=== PATIENT | male | born 1960 | race Caucasian/White ===

== ENCOUNTER → 2024-02-13 | Outpatient (CLI) | payer SELFPAY ==
[2024-02-13 11:56] LABS: Absolute Lymphocyte Count 2.32 X10^3/uL (0.83-4.51); Absolute Neutrophil Count 3.5 X10^3/uL (2.0-7.7); Basophil# 0.03 X10^3/uL; Basophil% 0.4 % (0-1); Eosinophil# 0.23 X10^3/uL; Eosinophils% 3.4 % (0-5); Hematocrit 42.6 % (40-54); Hemoglobin 14.3 g/dL (13.0-16.5); Lymphocyte # 2.32 X10^3/ul (0.83-4.51); Lymphocyte % 34.4 % (19-41); Mean Corp Hgb Conc 33.6 g/dL (32-36); Mean Corpuscular Hgb 29.7 pg (27.0-32.0); Mean Corpuscular Volume 88.6 fL (80-94); Mean Platelet Vol. 9.8 fl (6.2-12.0); Monocyte# 0.69 X10^3/uL; Monocyte% 10.2 % (0-10); NRBC Flagged by Analyzer 0 % (0-5); Neutrophil # 3.45 X10^3/uL (2.7-7.7); Neutrophil % 51.3 % (47-70); Platelet Count 286 K/mm3 (150-450); RBC Distribution Width CV 12.8 % (11.6-14.6); RBC Distribution Width SD 41.7 fl (35.1-43.9); Red Blood Count 4.81 M/mm3 (4.6-6.2); White Blood Count 6.7 K/mm3 (4.4-11.0)
[2024-02-13 12:02] LABS: International Normalized Ratio 0.9; Prothrombin Time (Protime)PT. 12.4 SECONDS (11.7-14.9)
[2024-02-13 12:40] LABS: Anion Gap 5 (5-15); BUN 15 mg/dL (7-18); Chloride 109 mmol/L (98-107); Creatinine, Serum 0.83 mg/dL (0.70-1.30); EST Glomerular Filtration Rate 99 mL/min (>60); Est Glom Filt Rate - Afr Amer 120 mL/min (>60); Glucose 122 mg/dL (74-106); Potassium 4.5 mmol/L (3.5-5.1); Sodium Level 140 mmol/L (136-145)
== END | disposition home or self-care (01) ==
PROVIDERS: PCP Family Medicine; Referring Provider Internal Medicine Cardiovascular Disease; Visit Provider Internal Medicine Cardiovascular Disease
DX: I20.0 Unstable angina (principal)
CPT/HCPCS: 36415; 71046; 80048; 85025; 85610

== ENCOUNTER → 2024-02-29 | Outpatient (CLI) | payer SELFPAY ==
--- NOTE | 2024-02-29 09:46 | ECHOD_ITS ---
Version 2 Reason For Study: CHEST PAIN Procedure This was a 2D Doppler, Color Flow transthoracic echocardiogram. Exam performed in department. Left Ventricle Normal LV size. The estimated ejection fraction is 70 %. Unable to assess diastolic dysfunction. No regional wall motion abnormalities noted. Right Ventricle Normal RV size. Normal systolic function. Atria The left and right atria are normal. No doppler evidence for ASD. Mitral Valve There is moderate mitral annular calcification. There is no mitral valve stenosis. No mitral valve insufficiency. Tricuspid Valve There is no tricuspid stenosis. Trivial tricuspid valve insufficiency. Unable to estimate RV systolic pressure due to insufficient tricuspid regurgitant envelope. Aortic Valve Mild diffuse aortic valve thickening. Mild aortic stenosis. No aortic valve insufficiency. Pulmonic Valve There is no pulmonic valvular stenosis. No pulmonic valve insufficiency. Great Vessels Normal aortic root. Pericardium/Pleural No pericardial effusion. MMode/2D Measurements & Calculations LVIDd: 4.1 cm IVSd: 1.3 cm LVOT diam: 2.0 cm LVIDs: 2.5 cm LVPWd: 1.3 cm LVOT area: 3.1 cm2 RVDd: 3.8 cm FS: 39.7 % Ao root diam: 3.3 cm LAV(MOD-bp): 50.1 ml LVAd ap4: 38.8 cm2 LAV(MOD-bp) Indexed: 23.1 ml/m2 LVLd ap4: 9.2 cm LAV(MOD-sp2): 51.4 ml EDV(MOD-sp4): 133.8 ml LAV(MOD-sp4): 49.1 ml EDV(sp4-el): 138.5 ml LVAs ap4: 21.1 cm2 LVLs ap4: 7.7 cm ESV(MOD-sp4): 51.5 ml ESV(sp4-el): 49.2 ml EF(MOD-sp4): 61.5 % EF(sp4-el): 64.5 % SV(MOD-sp4): 82.3 ml SV(sp4-el): 89.4 ml LA A4 area: 18.0 cm2 SI(MOD-sp4): 37.9 ml/m2 LA dimension(2D): 3.7 cm RA A4 area: 16.9 cm2 TAPSE: 2.4 cm Time Measurements MV dec time: 0.21 sec Doppler Measurements & Calculations MV E max chris: 85.6 cm/sec Lat Peak E' Chris: 10.8 cm/sec Med Peak E' Chris: 10.4 cm/sec MV A max chris: 97.3 cm/sec E/E' lat: 7.9 E/E' med: 8.2 MV E/A: 0.88 Ao V2 max: 234.3 cm/sec LV V1 max: 166.0 cm/sec SV(LVOT): 115.1 ml Ao max P.0 mmHg LV V1 max P.0 mmHg Ao V2 mean: 168.3 cm/sec LV V1 mean P.5 mmHg Ao mean P.8 mmHg LV V1 mean: 115.5 cm/sec Ao V2 VTI: 44.4 cm LV V1 VTI: 37.6 cm AV (velocity ratio): 0.85 NATALI(I,D): 2.6 cm2 NATALI(V,D): 2.2 cm2 ECHO/Echo Complete Interpretation Summary The estimated ejection fraction is 70 %. Unable to assess diastolic dysfunction. Mild aortic stenosis. Ordering Physician: Juancarlos Marquez Referring Physician: DIEUDONNE PÉREZ Performed By: Elodia Moses, LUC
== END | disposition home or self-care (01) ==
LOC: CVS 09:44
PROVIDERS: PCP Family Medicine; Referring Provider Internal Medicine Cardiovascular Disease; Visit Provider Internal Medicine Cardiovascular Disease
DX: I20.0 Unstable angina (principal); R01.1 Cardiac murmur, unspecified
CPT/HCPCS: 93306

== ENCOUNTER 2024-03-05 08:48 | Observation (INO) | payer SELFPAY ==
[2024-03-02 09:31] VITALS: BMI 34.9
[2024-03-05] VITALS (11 sets, daily range): BP systolic 133–164; BP diastolic 63–103; PULSE 67–75; RESP 16; TEMP 36.4–36.8; O2SAT 92–97; BMI 35.6
--- NOTE | 2024-03-05 08:21 | CL.D_ITS ---
Patient Name: BRITTON BECKER Study Date: 03/05/2024 Performing: Óscar Castanon MD Ht: 68 inches 172.72 cm : 1960 Wt: 230.01 lbs 104.33 kg Age: 63 Gender: male BSA: 2.17 PROCEDURE(S) PERFORMED DC01-(58005)LHC/COR/LV CLINICAL PROFILE AND INDICATIONS Indications: New Onset Angina <= 2 months Heart Failure: None Stress/Imaging Stress/Image Study Performed: No CAD Presentations: Unstable angina. CONCLUSIONS Severe single-vessel coronary artery disease involving the proximal to mid left anterior descending artery mildly calcified. Preserved left ventricular systolic function. RECOMMENDATIONS Referred for immediate PCI DESCRIPTION OF PROCEDURE The patient arrived to the procedure lab. The risks and benefits of the procedure as well as a full description of our services here and current unavailability of surgical backup were fully explained to the patient and/or their significant other prior to the catheterization. The Timeout was completed, verifying the correct patient and procedure. The patient's procedural site was prepped and draped in the usual fashion. Local anesthetic was given subcutaneously to right radial region with Lidocaine 2%. Using a modified Seldinger technique, arterial access was obtained via the right radial artery, a 6Fr sheath was inserted. Left Coronary Artery selective angiography was performed in multiple views using a 5 Fr. 4.0 [place] catheter. Right Coronary Artery selective angiography was then performed in multiple views using a 5 Fr. 4.0 [place] catheter. Left Ventriculography was performed in [place] projection using a 5 Fr. Pigtail catheter. LV to AO pullback pressures were then recorded. CORONARY ANGIOGRAPHY DOMINANCE: Co- Dominant LEFT HEART ASSESSMENT Left Ventricular Ejection Fraction: by LV Gram 65 % Normal LV wall motion Normal Left Ventricular systolic function LEFT MAIN: Angiographically normal LEFT ANTERIOR DESCENDING ARTERY: Mild calcification, Proximal long 95% stenotic lesion and mid focal 50% stenosis and distal mild tortuosity present. CIRCUMFLEX ARTERY: Mild luminal irregularities less than 30% RIGHT CORONARY ARTERY: Mild luminal irregularities less than 30% COMPLICATIONS No Complications PROCEDURE MEDICATIONS Versed 1 mg IV Fentanyl 50 mcg IV Baby Aspirin (81mg) 1 Tabs PO @ 03/05/2024 07:22:05 SUMMARY OF HEMODYNAMIC DATA Time AIR REST ECG 07:17:04 AO 155/58 (107) SA 08:05:19 LV 149/21, 38 08:10:03 LV 136/17, 25 08:10:12 LV 147/18, 22 08:11:24 LV 146/18, 22 08:11:26 LVp 150/16, 24 08:11:32 AOp 154/79 (109) 08:11:39 Signed By Óscar Castanon MD On 03/05/2024 08:23:19 Signed By Óscar Castanon MD On 03/05/2024 08:20:13 Óscar Castanon MD
--- NOTE | 2024-03-05 09:00 | EKG12_ITS ---
Test Reason : AM EKG Blood Pressure : */* mmHG Vent. Rate : 65 BPM Atrial Rate : 65 BPM P-R Int : 144 ms QRS Dur : 94 ms QT Int : 376 ms P-R-T Axes : -1 35 16 degrees QTcB Int : 391 ms Normal sinus rhythm Nonspecific T wave abnormality Abnormal ECG When compared with ECG of 05-Mar-2024 11:50, MANUAL COMPARISON REQUIRED DATA IS UNCONFIRMED Confirmed by CATE FLOOD, ÓSCAR ([id number]), content editor GOLDEN HARRISON ([id number]) on 03/06/2024 8:21:25 AM Referred By: Óscar Castanon Confirmed By: ÓSCAR CASTANON MD
--- NOTE | 2024-03-05 09:04 | CL.I_ITS ---
Patient Name: BRITTON BECKER Study Date: 03/05/2024 Performing: Zheng Lewis MD Ht: 68 inches 172.72 cm : 1960 Wt: 230.3 lbs 104.33 kg Age: 63 Gender: male BSA: 2.17 PROCEDURE(S) PERFORMED IC12-(46017/C9600)[place] W/WO PTCA, SINGLE CORONARY ARTERY CLINICAL PROFILE AND CO-MORBIDITIES Indications: New Onset Angina <= 2 months Heart Failure: None Stress/Imaging Stress/Image Study Performed: No CAD Presentations: Unstable angina. CONCLUSIONS Successful [place] Prox LAD using Brittany [place] 3.5x30 mm, optimized proximally using 4.0 mm balloon RECOMMENDATIONS ASA Indefinitley P2Y12 inhibitors for atleast 6 months DESCRIPTION OF PROCEDURE The patient arrived to the procedure lab. The risks and benefits of the procedure as well as a full description of our services here and current unavailability of surgical backup were fully explained to the patient and/or their significant other prior to the catheterization. The Timeout was completed, verifying the correct patient and procedure. The patient's procedural site was prepped and draped in the usual fashion. Local anesthetic was given subcutaneously to right radial region with Lidocaine 2% Using a modified Seldinger technique,arterial access was obtained via the right radial artery, a 6Fr sheath was inserted. Left Coronary Artery selective angiography was performed in multiple views using a 5 Fr. 4.0 [place] catheter. Right Coronary Artery selective angiography was then performed in multiple views using a 5 Fr. 4.0 [place] catheter. Left Ventriculography was performed in [place] projection using a 5 Fr. Pigtail catheter. LV to AO pullback pressures were then recorded.The images were reviewed and options discussed. A decision was then made to proceed with an Intervention, IVUS or other adjunct procedure. xb3 Guide catheter was inserted and engaged into the LCA. runthrough Guide wire was advanced to the LAD. brittany 3.5 x 30 Drug Eluting stent was advanced across the lesion in the LAD, proximal. Angiogram performed pre stent deployment. Angiogram performed post stent deployment. nc emerge 3.5 x 20 Balloon catheter was inserted post stent. Angiogram performed post balloon dilatation. nc euphora 4.0 x 6 Balloon catheter was inserted post stent. Angiogram performed post balloon dilatation. The arterial sheath was pulled and a TR Band was applied for hemostasis INTERVENTION INFORMATION LESION SITE: LAD (Proximal) lesion length: 28 mm, Lesion Complexity: High/C Pre Stenosis: 95 % Pre intervention COOKIE flow: 3 PROCEDURE: Drug Eluting Stent with post dilatation Post Stenosis: 0 % Post intervention COOKIE flow: 3 Lesion Devices: Terumo .014 180cm Runthrough Extra Floppy straight Cordis 6 Fr XB3.0 100cm Guide Catheter Medtronic 3.5 x 30 BRITTANY FRONTIER [place] [employer] [place] EMERGE MR 3.50x20 BALLOON Medtronic [place] EUPHORA RX 4.0x06 BALLOON COMPLICATIONS No Complications PROCEDURE MEDICATIONS Versed 1 mg IV Fentanyl 50 mcg IV Baby Aspirin (81mg) 1 Tabs PO @ 03/05/2024 07:22:05 Heparin given IA 03/05/2024 08:02:33 Heparin 8000 unit(s) IV 03/05/2024 08:21:40 Heparin 2000 unit(s) IV 03/05/2024 08:31:19 Heparin 3000 unit(s) IV 03/05/2024 08:51:06 Nitro 200 mcg IC 03/05/2024 08:31:13 Verapamil 2.5mg, Ntg 200mcgs, 2000 units of Heparin given IA 03/05/2024 08:02:33 SUMMARY OF HEMODYNAMIC DATA Time AIR REST ECG 07:17:04 AO 155/58 (107) SA 08:05:19 LV 149/21, 38 08:10:03 LV 136/17, 25 08:10:12 LV 147/18, 22 08:11:24 LV 146/18, 22 08:11:26 LVp 150/16, 24 08:11:32 AOp 154/79 (109) 08:11:39 AIR REST 08:55:07 Signed By Zheng Lewis MD On 03/05/2024 09:03:41 Zheng Lewis MD
[2024-03-05] MEDS: 0.9% Normal Saline (1000mL) 1,000 ML 150 ML IV (09:30)
[2024-03-05] MEDS: Losartan Potassium 50 MG Tablet PO (10:44)
[2024-03-05] MEDS: amLODIPine 5 MG Tablet PO ×2 (10:44→12:02)
[2024-03-05 14:55] LABS: ACT Activated Clotting Time 239 sec (74-137)
[2024-03-05] MEDS: Clopidogrel Bisulfate 300 MG Tablet PO (15:15)
--- NOTE | 2024-03-05 15:20 | CRPHASE1_ITS ---
Patient Communication Patient Information Former Patient:: Phase I PHII Cardiac Rehab Discussed with Patient:: Yes Guide to Cardiac Rehab Given to Patient:: Yes Cardiac Rehab Facility Choice List Given to Patient:: Yes Communication to Cardiac Rehab Choice Program [facility] CR PHII:: Communication Given to CR Operations And Maintenance Manager:: Zheng Lewis Phase II Cardiac Rehab:: Yes Sessions:: 36 sessions - 3 days/wk, 12 weeks Medical/Surgical History Medical History [place]:: No Angina:: Yes CAD:: Yes Congestive Heart Failure: Cardiomyopathy:: No Valve Disease/Replacement:: No Pulmonary:: No COPD:: No Asthma:: No JUAN:: No Diabetes:: No Diabetes Type I:: No Diabetes Type II:: No Hypertension:: Yes Dyslipidemia:: No Arrhythmias:: No EPS:: No CVA/TIA: PE:: No DVT:: No PVD:: No PAD:: No GI:: No GERD:: No Cancer:: No Renal:: No Thyroid:: No Depression:: No Anxiety:: No Surgical History CABG: No PTCA:: Yes ICD:: No Pacemaker:: No Orthopedic:: No Cardiac Rehabilitation Info Program Information Cardiac Rehabilitation Program Information: Cardiac Rehab The cardiac rehab team at [facility] consists of highly skilled exercise physiologists, nurses, respiratory therapists and physicians working together with you. Our purpose is to help you have a full recovery and achieve the goals you set for yourself. Over the years many of our patients have returned to activities they assumed they would never do again! We can help restore your confidence and motivation to make lifestyle changes that can have a significant impact on your health and quality of life! We can help answer questions and concerns you may have about exercise, lifestyle, medications, diet, stress and anxiety which are common following a hospitalization. WE monitor ECG and vital signs during exercise and discuss your progress with you and report to your physician(s). Cardiac Rehab is proven to help reduce readmissions, improve functional capacity and lower recurrence of problems with your heart. Our Cardiac Rehab program is Certified by the [place] [employer]-Vascular and Pulmonary [employer] (AACVPR) and Accredited by the [place] [employer] through our [facility]. You can contact us at . We invite you to call us with your questions or to get started in our program. If you have other questions or concerns be sure to ask your physician/provider during your follow-up visit. WE look forward to seeing you!
--- NOTE | 2024-03-05 15:21 | CRPH1.INSTRU ---
General Education Discussed with Patient CAD and cardiac anatomy and function:: Patient communicates acknowledgment Explanation of diagnoses and procedures:: Patient communicates acknowledgment Sign/Symptoms of MA:: Patient communicates acknowledgment Antiplatelet therapy: Patient communicates acknowledgment Proper use of NTG-SL: Patient communicates acknowledgment Emergency procedures and activation of EMS: Patient communicates acknowledgment Compliance of all prescribed medications: Patient communicates acknowledgment Smoking Risk Factors Patient Nicotine/Smoking Risk Factors Are:: Never smoked Dyslipidemia Recommendations Recommendations Include:: Lipid profile not available Overweight/Obesity Risk Factors Patient Overweight/Obesity Risk Factors Are:: Overweight = 26-29 Recommendations Recommendations Include:: Reduced calorie diet and Exercise 5-7 times/week Response Code Overweight/Obesity:: Patient communicates acknowledgment Hypertension Recommendations Recommendations Include:: Maintain BP <130/85 and Decrease/maintain normal body weight Response Code Hypertension:: Patient communicates acknowledgment Heart Disease Risk Factors Patient Heart Disease Risk Factors Are:: Previous cardiac event Recommendations Recommendations Include:: Educated family members of their risk Response Code Heart Disease Response Code:: Patient communicates acknowledgment Diabetes Risk Factors Patient Diabetes Risk Factors Are:: No documented hx of diabetes Metabolic Syndrome Risk Factors Patient Metabolic Syndrome Risk Factors Are [3 of 5]:: Hypertension Response Code Metabolic Syndrome Response Code:: Patient communicates acknowledgment Sedentary Recommendations Recommendations Include:: Benefits of regular exercise Response Code Sedentary Response Code:: Patient communicates acknowledgment Stress Risk Factors Patient Stress Risk Factors Are:: Patient denies stress as a risk factor Recommendations Recommendations Include:: Identification of stressors, and assessment of coping skills Response Code Stress Response Code:: Patient communicates acknowledgment
[2024-03-05] MEDS: Carvedilol 3.125 MG TABLET PO (16:44)
[2024-03-05] MEDS: Atorvastatin Calcium 40 MG Tablet PO (20:25)
[2024-03-06 02:15] VITALS: BP 129/59; PULSE 69; RESP 17; TEMP 36.6; O2SAT 94
[2024-03-06 07:15] LABS: Hematocrit 41.9 % (40-54); Hemoglobin 13.7 g/dL (13.0-16.5); Mean Corp Hgb Conc 32.7 g/dL (32-36); Mean Corpuscular Hgb 28.8 pg (27.0-32.0); Mean Corpuscular Volume 88.2 fL (80-94); Mean Platelet Vol. 9.3 fl (6.2-12.0); Platelet Count 273 K/mm3 (150-450); RBC Distribution Width CV 12.7 % (11.6-14.6); RBC Distribution Width SD 41.1 fl (35.1-43.9); Red Blood Count 4.75 M/mm3 (4.6-6.2); White Blood Count 7.9 K/mm3 (4.4-11.0)
[2024-03-06 07:33] LABS: ACT Activated Clotting Time 262 sec (74-137)
[2024-03-06 07:43] VITALS: O2SAT 96
--- NOTE | 2024-03-06 07:45 | PCM.PN.CARD ---
Subjective Subjective Patient seen and evaluated. Appears to doing well. No complaints. Objective Data Vital Signs: Vital Signs Temp Pulse Resp BP Pulse Ox O2 Del Method 97.9 F 69 17 129/59 H 96 Room Air 03/06/24 02:15 03/06/24 02:15 03/06/24 02:15 03/06/24 02:15 03/06/24 07:43 03/06/24 07:43 Oxygen Delivery Method Room Air Weight: 234 lb 2.095 oz Body Mass Index (BMI) 35.6 Intake & Output: Intake and Output for Last 24 Hours 03/04/24 03/05/24 03/06/24 23:59 23:59 23:59 Intake Total 1000 / 1000 Output Total 500 / 500 Balance 500 / 500 Lab / Micro Data 03/06/24 06:41 03/06/24 06:41 Labs: Laboratory Results - last 24 hr 03/05/24 08:26: Activated Clotting Time 262 H 03/05/24 08:48: Activated Clotting Time 239 H 03/06/24 06:41: WBC 7.9, RBC 4.75, Hgb 13.7, Hct 41.9, MCV 88.2, MCH 28.8, MCHC 32.7, RDW Std Deviation 41.1, RDW Coeff of David 12.7, Plt Count 273, MPV 9.3 Cardiology Labs/Tests 03/06/24 06:41: WBC 7.9, RBC 4.75, Hgb 13.7, Hct 41.9, MCV 88.2, MCH 28.8, MCHC 32.7, Plt Count 273, MPV 9.3 Rhythm: EKG: ECHO: Stress Test: Cardiac Cath: PCI: CT Surgery: Holter monitor: EPS: PPM: CXR: Chest CT Scan: Physical Exam Const alert, oriented x3 and no apparent distress General Appearance: cooperative HEENT hearing grossly normal bilaterally Head and Scalp: atraumatic Eyes EOMs intact bilaterally Neck General: normal visual inspection Chest inspection of chest normal and palpation of chest normal Resp normal respiratory effort Auscultation: clear to auscultation bilaterally Cardio regular rate, regular rhythm, S1 normal heart sound and S2 normal heart sound Jugular Venous Distention: JVD GI normal to inspection, nondistended, normoactive bowel sounds Extremity normal capillary refill and no pedal edema Peripheral Pulses: Yes pulses 2+ throughout and femoral pulses present Skin no rashes or lesions noted Neuro oriented x3 and CN's II-XII intact bilaterally Psych Appearance: grossly normal and appropriate Assessment & Plan Assessment/Plan (1) Stented coronary artery: PLAN: Patient underwent angioplasty and stenting of the left anterior descending artery and is doing well at this time the plan is to continue current medical therapy including P2 Y12 inhibitor and discharged for outpatient follow-up. Patient will consider cardiac rehabilitation. Follow-up in the heart group offices (2) Hypertension: QUALIFIERS: Hypertension type: primary hypertension Qualified Code(s): I10 - Essential (primary) hypertension PLAN: Blood pressure is under good control at this particular time I would not make any major changes.
--- NOTE | 2024-03-06 07:51 | DCINST_ITS ---
Discharge Instructions Diet Discharge Diet: No restrictions (You may continue your normal diet.) DC O2, CPAP, BIPAP needs Additional Home O2 Discharge instructions: No Dressing / Incision Discharge Activity: Return to Normal Activity Lifting Restrictions: 10 pounds and also avoid any pushing or pulling for 3 days after your test. Additional Activity Instructions:: You must have someone drive you home. Do not drive until instructed by your doctor. You must have someone stay with you all night after your test. Rest in bed or on the couch until the next morning. Limit the number of times you go up and down stairs the day of your test. Apply pressure to the puncture site if you sneeze or cough. Dressing / Incision Call your doctor if your incision/area has: Increased Pain/ Swelling, Increased Redness, Foul Smelling Discharge and Swelling at the incision site Call your doctor if you observe: Fever of 101 or Higher Additional Dressing/Incision Instructions:: Keep the dressing (bandage) on until the next morning. You may then shower, but do not take a tub bath for 5 days after your test. It is normal to have some tenderness and discomfort at the puncture site. Sometimes bruising also occurs. However, if pain, numbness, or coldness occurs below the puncture site (in your leg, toes, arms or fingers) call your doctor at once. You may have a small, marble sized knot at the puncture site. This is normal. Do not rub it. It will go away in 4-6 weeks. Bleeding can occur from the area where the puncture was done. Blood may spurt or drip from the site. If blood spurts, apply pressure right away to stop bleeding and call 911. Although rare, bleeding into the tissue (hematoma) can also occur. If this happens, a large, firm area goose egg under the skin will appear. If any of these occur, lie down as flat as you can and have someone apply firm pressure to the cath site with a gauze pad or a clean washcloth for 10-15 minutes. Call 911 or go to the Emergency Department. Follow Up Care Test Results: Test results from this visit will be discussed in further detail at your follow- up appointment, if applicable. Discharge Plan Admission Admit Date/Time: 03/05/24 08:48 Attending Provider: Óscar Castanon Primary Care Provider: Alessandro Mendoza Discharge Orders/Prescriptions Prescriptions: New clopidogrel 75 mg Tablet 75 mg PO DAILY Qty: 90 3RF Continued telmisartan 40 mg tablet 40 mg PO QDAY amlodipine 5 mg tablet 5 mg PO QDAY atorvastatin 40 mg tablet 40 mg PO QDAY aspirin 81 mg capsule 81 mg PO DAILY Referrals / Follow Up: Alessandro Mendoza DO [Primary Care Provider] - Disposition Disposition (needs filled in before D/C Order can be placed): Home, Self Care
[2024-03-06 07:52] LABS: ALB/GLOB Ratio 1.5 RATIO (0.9-2.4); AST(SGOT) 20 U/L (15-37); Alanine Aminotransfer ALT/SGPT 43 U/L (16-61); Albumin, Serum 3.9 g/dL (3.2-5.0); Alkaline Phosphatase 66 U/L (45-117); Anion Gap 4 (5-15); BUN 15 mg/dL (7-18); BUN/Creat Ratio 19.1 RATIO (10-20); Chloride 110 mmol/L (98-107); Creatinine, Serum 0.78 mg/dL (0.70-1.30); EST Glomerular Filtration Rate 106 mL/min (>60); Est Glom Filt Rate - Afr Amer 129 mL/min (>60); Globulin 2.6 g/dL (2.2-4.2); Glucose 110 mg/dL (74-106); Potassium 4.2 mmol/L (3.5-5.1); Protein, Total 6.5 g/dL (6.4-8.2); Sodium Level 140 mmol/L (136-145)
[2024-03-06] MEDS: Aspirin 81 MG TAB.CHEW PO (07:56)
[2024-03-06] MEDS: Carvedilol 3.125 MG TABLET PO (07:56)
--- NOTE | 2024-03-06 10:14 | CASEMGMT ---
Patient has order for discharge. RN CM in to discuss needs at discharge. Patient denies needs or help at discharge. Patient had no further questions or concerns.
--- NOTE | 2024-03-06 10:15 | PHA.DC.MC.R ---
Pharmacy [facility] has performed discharge medication reconciliation and counseling for this patient. The patient's discharge medication list was reviewed for discrepancies and discrepancies were resolved. The patient was counseled on the following discharge medications and changes in medications for homegoing were reviewed. The Reason for Use, instructions for use, and potential side effects were reviewed for all new medications. The patient's questions regarding all of their medications were answered. 1. Clopidogrel 75 mg PO daily. The patient was able to verbally demonstrate an understanding of their discharge medications. Medications at Discharge Home Medications amlodipine 5 mg tablet 5 mg PO QDAY 01/16/24 atorvastatin 40 mg tablet 40 mg PO QDAY 01/16/24 telmisartan 40 mg tablet 40 mg PO QDAY 01/16/24 aspirin 81 mg capsule 81 mg PO DAILY 03/02/24 clopidogrel 75 mg tablet 75 mg PO DAILY #90 tabs 03/06/24
[2024-03-06 10:56] VITALS: BP 151/76; PULSE 67; RESP 18; TEMP 36.4; O2SAT 95
[2024-03-06] MEDS: amLODIPine 5 MG Tablet PO (10:59)
[2024-03-06] MEDS: Losartan Potassium 50 MG Tablet PO (10:59)
[2024-03-06] MEDS: Clopidogrel Bisulfate 75 MG Tablet PO (10:59)
== END 2024-03-06 07:50 | disposition home or self-care (01) ==
LOC: PCU 09:12
PROVIDERS: Internal Medicine Cardiovascular Disease; Admitting Provider Internal Medicine Cardiovascular Disease; PCP Family Medicine; Referring Provider Internal Medicine Cardiovascular Disease; Visit Provider Internal Medicine Cardiovascular Disease
DX: I25.110 Atherosclerotic heart disease of native coronary artery with unstable angina pectoris (principal); E78.5 Hyperlipidemia, unspecified; Z82.49 Family history of ischemic heart disease and other diseases of the circulatory system; R73.03 Prediabetes; Z79.899 Other long term (current) drug therapy; G47.30 Sleep apnea, unspecified; K21.9 Gastro-esophageal reflux disease without esophagitis; I10 Essential (primary) hypertension
CPT/HCPCS: 36415; 80053; 85027; 85347; 92928; 93005; 93458; 96360; 96361; 99152; 99153; 99221; C1725; J7030; J7040; Q9967; C1769; C1874; C1887; C1894; C9600; G0378

== ENCOUNTER → 2025-02-14 | Outpatient (CLI) | payer SELFPAY ==
[2025-02-14 11:39] LABS: AST(SGOT) 27 U/L (<=37); Alanine Aminotransfer ALT/SGPT 38 U/L (<=46); Albumin, Serum 4.4 g/dL (3.4-4.8); Alkaline Phosphatase 60 U/L (40-129); Bilirubin, Direct 0.28 mg/dL (0.00-0.30); Cholesterol 170 mg/dL (<=200); Globulin 2.4 g/dL (2.2-4.2); Low Density Lipoprotein Calc. 109 mg/dL; Triglycerides 90 mg/dL; Very Low Density Lipoprotein 18 mg/dL (5-40); cholesterol:hdl ratio screen 3.81
--- OUTSIDE RECORDS SUMMARY | 2025-02-14 15:05 | XMS RPT_ITS | CCD ---
Author Organization [facility] Care Team Providers Care Funeral Arrangement Director Name Role Phone Alessandro Mendoza Referring Unavailable Reji, Alessandro Primary Care Unavailable Juancarlos Marquez Attending Unavailable Reji, Alessandro Primary Care Unavailable Jimmy, Juancarlos Attending Unavailable Jimmy, Juancarlos Referring Unavailable Jimmy, Juancarlos Attending Unavailable Marquez, Juancarlos Referring Unavailable Reji, Alessandro Primary Care Unavailable Reji, Alessandro Primary Care Unavailable Jimmy, Juancarlos Attending Unavailable Rylan Bender Referring Unavailable Reji, Alessandro Primary Care Unavailable Lg, Quebeck Attending Unavailable Lg, Quebeck Referring Unavailable Lg, Óscar Admitting Unavailable Luigi Montana Attending Unavailabl e Reji, Alessandro Primary Care Unavailable JoshuaZheng corado Attending Unavailable Reji, Alessandro Primary Care Unavailable Lg, Óscar Consulting Unavailable Lg, Óscar Attending Unavailable Lg, Quebeck Referring Unavailable Reji, Alessandro Primary Care Unavailable Lg, Quebeck Admitting Unavailable Problems Active Problems Problem Classification Problem Date Documented Date Episodic/Chronic Coronary atherosclerosis and other heart disease (3 sources) Atherosclerotic heart disease of [place] coronary artery with unstable angina pectoris; Translations: [Atherosclerotic heart disease of [place] coronary artery without angina pectoris] Onset: 03-12-2024 Chronic Coronary atherosclerosis and other heart disease (1 source) Presence of coronary angioplasty implant and graft; Translations: [Presence of coronary angioplasty implant and graft] Onset: 03-12-2024 Episodic Disorders of lipid metabolism (1 source) Hyperlipidemia, unspecified; Translations: [Hyperlipidemia, unspecified] Onset: 05-17-2024 Chronic Essential hypertension (2 sources) Essential (primary) hypertension; Translations: [Essential (primary) hypertension] Onset: 02-13-2024 Chronic Past or Other Problems Problem Classification Problem Date Documented Da te Episodic/Chronic Heart valve disorders (1 source) Cardiac murmur, unspecified; Translations: [Cardiac murmur, unspecified] Onset: 02-13-2024 Episodic Results Test Name Value Interpretation Reference Range Facility Cardiology Visit Reporton Cardiology Visit Report [facility] [address] [place] [address] OFFICE VISIT Date of Service: 05/17/24 MR#: [id number] Acct: [id number] Name: BRITTON BECKER Rep #: [id number] : 1960 Provider: Dr. Juancarlos abernathy MD Age/Sex: 63/M Location: [facility] Status: Signed HPI HPI History of Present Illness Details: Patient 63-year-old white male comes in for monitoring his cardiovascular disease. Patient was evaluated here back mid January 2024. He presented with what sounded to be classic accelerating angina. He underwent left heart catheterization 03/05/2024 which showed severe disease with a 95% proximal long lesion in the left anterior descending. He had 30% stenoses in the circumflex and right coronary arteries. LV showed a normal LV function with EF of 65%. The patient was treated with drug-eluting stent. 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 The patient also has a history of hypertension which is well-controlled on his current meds he has a history of obstructive sleep apnea which he intermittently utilizes his device. And he has a history of hyperlipidemia which is monitored to the primary service. 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 Accompanied by: Daughter, Is patient in pain?: No Allergies No Known Allergies Allergy (Unverified 05/17/24 09:05) Medications ???Medication ???Instructions ???Recorded ???Confirmed ???Type amlodipine 5 mg tablet 5 mg PO QDAY 01/16/24 05/17/24 His tory telmisartan 40 mg tablet 40 mg PO QDAY 01/16/24 05/17/24 Hi story aspirin 81 mg capsule 81 mg PO DAILY 03/02/24 05/17/24 H istory clopidogrel 75 mg tablet 75 mg PO DAILY #90 tabs 03/06/24 0 05/17/24 Rx atorvastatin 40 mg tablet 40 mg PO QDAY #90 tabs 04/25/24 Rx Ejection fraction %: 65 Have you fallen in the past year?: No PFSH Medical History Hypertension Sleep apnea GERD (gastroesophageal reflux disease) Penile cyst Scrotal cyst Dyslipidemia Obesity Surgical History Stented coronary artery (03/05/24) Hx of surgical amputation of finger Family History Grandfather CAD (coronary artery disease) Social History Smoking Status: Never smoker ROS Const Const: Negative for fatigue or weakness ENT ENT: Negative for dizziness or balance problems Cardio Chest Pain: No Palpitations: Yes Edema: None Muscle aches with walking: None Resp Respiratory: Positive for SOB with activity; Negative for SOB at rest or SOB orthopnea SOB lying down GI GI: Negative nausea, vomiting or heartburn Musc Musc: Negative for muscle weakness or balance problems Neuro Neuro: Negative for dizziness, lightheadedness, near syncope, syncope or weakness Endo Endo: Negative for fatigue Cardiology Exam Const Appearance: cooperative, comfortable, no acute distress and well developed Nutritional Appearance: obese Head Head: normal to inspection Eyes General: appearance normal, both eyes and all related structures Neck Neck: normal visual inspection and no JVD Carotids: Negative bruit Chest Chest inspection: normal inspection of the chest Auscultation: Bilateral: Clear to Auscultation Cardio Rate: regular rate Rhythm: regular rhythm Heart sounds: S1 normal and S2 normal; Negative rub, gallop or murmur GI GI: obese Neuro General: patient alert and patient oriented x3 Extremities Lower Extremity Edema: None: Bilateral Psych Psychological: normal affect Supplemental Info Supplemental Information Labs: No Data to Display Diagnostics: Electrocardiogram Echocardiogram Cardiac Catheterization Chest X-Ray Pulmonary: No Data to Display Past Visits: Cardiology Visit 05/17/24 Assessment and Plan Assessment and Plan (1) Dyslipidemia: Status: Acute Plan: Patient carries a history of hyperlipidemia and known coronary disease. I do not have a recent lipid profile he has been on atorvastatin 40 mg daily. His target LDL cholesterol should be less than 70. He is scheduled to have b (more content not included)... Normal [facility] ACT Activated Clotting Timeo n 03-06-2024 ACTk CLOT TIME 262 sec High 74-137 [facility] Comment on above: Performed By: #### L 9100.0100 #### [facility] [address] [place], [address] CBC-Complete Blood Cnt No Di ffon 03-06-2024 Erythrocyte distribution width (RBC) [Ratio] 12.7 % Normal 11.6-14.6 [facility] Comment on above: Performed By: #### L 100.0500, L500.4050 #### [facility] [address] [place], [address] Hematocrit (Bld) [Volume fraction] 41.9 % Normal 40-54 [facility] Comment on above: Performed By: #### L 100.0500, L500.4050 #### [facility] [address] [place], [address] Hemoglobin (Bld) [Mass/Vol] 13.7 g/dL Normal 13.0-16.5 [facility] Comment on above: Performed By: #### L 100.0500, L500.4050 #### [facility] [address] [place], [address] MCH (RBC) [Entitic mass] 28.8 pg Normal 27.0-32.0 [facility] Comment on above: Performed By: #### L 100.0500, L500.4050 #### [facility] [address] [place], [address] MCHC (RBC) [Mass/Vol] 32.7 g/dL Normal 32-36 [facility] Comment on above: Performed By: #### L 100.0500, L500.4050 #### [facility] [address] [place], [address] MCV (RBC) [Entitic vol] 88.2 fL Normal 80-94 [facility] Comment on above: Performed By: #### L 100.0500, L500.4050 #### [facility] [address] [place], [address] Platelet mean volume (Bld) [Entitic vol] 9.3 fL Normal 6.2-12.0 [facility] Comment on above: Performed By: #### L 100.0500, L500.4050 #### [facility] [address] [place], [address] Platelets (Bld) [#/Vol] 273 10*3/uL Normal 150-450 [facility] Comment on above: Performed By: #### L 100.0500, L500.4050 #### [facility] [address] [place], [address] RBC (Bld) [#/Vol] 4.75 10*6/uL Normal 4.6-6.2 [facility] Comment on above: Performed By: #### L 100.0500, L500.4050 #### [facility] [address] [place], [address] RDW SD 41.1 fl Normal 35.1-43.9 [facility] Comment on above: Performed By: #### L 100.0500, L500.4050 #### [facility] [address] [place], [address] WBC (Bld) [#/Vol] 7.9 10*3/uL Normal 4.4-11.0 [facility] Comment on above: Performed By: #### L 100.0500, L500.4050 #### [facility] [address] [place], [address] Comprehensive Metabolic Prof ilon 03-06-2024 Albumin [Mass/Vol] 3.9 g/dL Normal 3.2-5.0 [facility] Comment on above: Performed By: #### L 100.0500, L500.4050 ####[facility] [address] [place], [address] Albumin/Globulin [Mass ratio] 1.5 {ratio} Normal 0.9-2.4 [facility] Comment on above: Performed By: #### L 100.0500, L500.4050 ####[facility] [address] [place], [address] ALK P 66 U/L Normal 45-117 [facility] Comment on above: Performed By: #### L 100.0500, L500.4050 ####[facility] [address] [place], [address] ALT [Catalytic activity/Vol] 43 U/L Normal 16-61 [facility] Comment on above: Performed By: #### L 100.0500, L500.4050 ####[facility] [address] [place], [address] AST [Catalytic activity/Vol] 20 U/L Normal 15-37 [facility] Comment on above: Performed By: #### L 100.0500, L500.4050 ####[facility] [address] [place], [address] Bilirubin [Mass/Vol] 0.50 mg/dL Normal 0.20-1.00 [facility] Comment on above: Result Comment: For patients on eltrombopag therapy, use of Dimension [place] TBIL is not recommended. Performed By: #### L 100.0500, L500.4050 ####[facility] [address] [place], [address] BUN/CRE 19.1 RATIO Normal 10-20 [facility] Comment on above: Performed By: #### L 100.0500, L500.4050 ####[facility] [address] [place], [address] CA,Total 9.0 mg/dL Normal 8.5-10.1 [facility] Comment on above: Performed By: #### L 100.0500, L500.4050 ####[facility] [address] [place], [address] Chloride [Moles/Vol] 110 mmol/L High 98-107 [facility] Comment on above: Performed By: #### L 100.0500, L500.4050 ####[facility] [address] [place], [address] CO2 [Moles/Vol] 27.0 mmol/L Normal 21.0-32.0 [facility] Comment on above: Performed By: #### L 100.0500, L500.4050 ####[facility] [address] [place], [address] Creatinine [Mass/Vol] 0.78 mg/dL Normal 0.70-1.30 [facility] Comment on above: Result Comment: The validity of the calculated GFR GFRAA in patients over 70 years has not been determined. Clinical correlation is essential. Performed By: #### L 100.0500, L500.4050 ####[facility] [address] [place], [address] ECRCL 116.00 ml/min Normal [facility] Comment on above: Performed By: #### L 100.0500, L500.4050 ####[facility] [address] [place], [address] EST GFR - AA 129 mL/min Normal >60 [facility] Comment on above: Result Comment: Afri can Danish GFR Calc Performed By: #### L 100.0500, L500.4050 ####[facility] [address] [place], [address] GAP 4 Low 5-15 [facility] Comment on above: Performed By: #### L 100.0500, L500.4050 ####[facility] [address] [place], [address] GFR/1.73 sq M.predicted among non-blacks MDRD (S/P/Bld) [Vol rate/Area] 106 mL/min/{1.73_m2} Normal >60 [facility] Comment on above: Result Comment: Non- GFR Calc Performed By: #### L 100.0500, L500.4050 ####[facility] [address] [place], [address] Globulin (S) [Mass/Vol] 2.6 g/dL Normal 2.2-4.2 [facility] Comment on above: Performed By: #### L 100.0500, L500.4050 ####[facility] [address] [place], [address] Glucose [Mass/Vol] 110 mg/dL High 74-106 [facility] Comment on above: Result Comment: Fast ing Glucose result from 100 to 125 mg/dL suggests IMPAIRED HOMEOSTASIS per A.D.A. criteria. Performed By: #### L 100.0500, L500.4050 ####[facility] [address] [place], [address] Potassium [Moles/Vol] 4.2 mmol/L Normal 3.5-5.1 [facility] Comment on above: Performed By: #### L 100.0500, L500.4050 ####[facility] [address] [place], [address] Sodium [Moles/Vol] 140 mmol/L Normal 136-145 [facility] Comment on above: Performed By: #### L 100.0500, L500.4050 ####[facility] [address] [place], [address] T PROT 6.5 g/dL Normal 6.4-8.2 [facility] Comment on above: Performed By: #### L 100.0500, L500.4050 ####[facility] [address] [place], [address] Urea nitrogen [Mass/Vol] 15 mg/dL Normal 7-18 [facility] Comment on above: Performed By: #### L 100.0500, L500.4050 ####[facility] [address] [place], [address] Discharge Instructionon 02-25 Discharge Instruction [facility] Medical Records Department [address] [place] [address] Instructions for Home/Discharge Instructions 03/06/24 0751 MR#: [id number] Acct: [id number] Name: BRITTON BECKER Rep #: [id number] : 1960 63 From: Óscar Castanon MD PCP: Dr. Alessandro Mendoza MD Status:ADM ANTONIO Discharge Instructions Diet Discharge Diet: No restrictions (You may continue your normal diet.) DC O2, CPAP, BIPAP needs Additional Home O2 Discharge instructions: No Dressing / Incision Discharge Activity: Return to Normal Activity Lifting Restrictions: 10 pounds and also avoid any pushing or pulling for 3 days after your test. Additional Activity Instructions:: You must have someone drive you home. Do not drive until instructed by your doctor. You must have someone stay with you all night after your test. Rest in bed or on the couch until the next morning. Limit the number of times you go up and down stairs the day of your test. Apply pressure to the puncture site if you sneeze or cough. Dressing / Incision Call your doctor if your incision/area has: Increased Pain/ Swelling, Increased Redness, Foul Smelling Discharge and Swelling at the incision site Call your doctor if you observe: Fever of 101 or Higher Additional Dressing/Incision Instructions:: Keep the dressing (bandage) on until the next morning. You may then shower, but do not take a tub bath for 5 days after your test. It is normal to have some tenderness and discomfort at the puncture site. Sometimes bruising also occurs. However, if pain, numbness, or coldness occurs below the puncture site (in your leg, toes, arms or fingers) call your doctor at once. You may have a small, marble sized knot at the puncture site. This is normal. Do not rub it. It will go away in 4-6 weeks. Bleeding can occur from the area where the puncture was done. Blood may spurt or drip from the site. If blood spurts, apply pressure right away to stop bleeding and call 911. Although rare, bleeding into the tissue (hematoma) can also occur. If this happens, a large, firm area goose egg under the skin will appear. If any of these occur, lie down as flat as you can and have someone apply firm pressure to the cath site with a gauze pad or a clean washcloth for 10-15 minutes. Call 911 or go to the Emergency Department. Follow Up Care Test Results: Test results from this visit will be discussed in further detail at your follow-up appointment, if applicable. Discharge Plan Admission Admit Date/Time: 03/05/24 08:48 Attending Provider: Óscar Castanon Primary Care Provider: Alessandro Mendoza Discharge Orders/Prescriptions Prescriptions: New clopidogrel 75 mg Tablet 75 mg PO DAILY Qty: 90 3RF Continued telmisartan 40 mg tablet 40 mg PO QDAY amlodipine 5 mg tablet 5 mg PO QDAY atorvastatin 40 mg tablet 40 mg PO QDAY aspirin 81 mg capsule 81 mg PO DAILY Referrals / Follow Up: Alessandro Mendoza DO [Primary Care Provider] - Disposition Disposition (needs filled in before D/C Order can be placed): Home, Self Care 03/06/24 5147 Óscar Castanon MD CC: Dr. Alessandro Mendoza MD Signed Normal [facility] 12 Lead EKGon 03-05-2024 12 Lead EKG [facility] Cardiovascular Services [address] [place] [address] 12 Lead EKG 03/06/24 0546 MR#: [id number] Acct: [id number] Name: BRITTON BECKER Rep #: [id number] : 1960 63 From: Óscar Castanon MD Attending Dr: Dr. Óscar Castanon MD Status: ADM I NO Ordering Dr: Zheng Lewis MD Date: 03/05/24 Location: [facility] Sex: M C Admitted: 03/05/24 Test Reason : AM EKG Blood Pressure : */* mmHG Vent. Rate : 65 BPM Atrial Rate : 65 BPM P-R Int : 144 ms QRS Dur : 94 ms QT Int : 376 ms P-R-T Axes : -1 35 16 degrees QTcB Int : 391 ms Normal sinus rhythm Nonspecific T wave abnormality Abnormal ECG When compared with ECG of 05-Mar-2024 11:50, MANUAL COMPARISON REQUIRED DATA IS UNCONFIRMED Confirmed by LG FLOOD, ÓSCAR ([id number]), web content editor GOLDEN HARRISON ([id number]) on 03/06/2024 8:21:25 AM Referred By: Óscar Castanon Confirmed By: ÓSCAR CASTANON MD 03/06/24820 Date ____ Óscar Castanon MD CC: Dr. Zheng Lewis MD; Dr. Alessandro Mendoza MD; Dr. Óscar Castanon MD Signed Normal [facility] ACT Activated Clotting Timeo n 03-05-2024 ACTk CLOT TIME 239 sec High 74-137 [facility] Comment on above: Performed By: #### L 9100.0100 ####[facility] [address] [place], [address] Cardiac Cath Diagnosticon Cardiac Cath Diagnostic [facility] Imaging Services [address] [place] [address] Cardiac Cath Diagnostic MR#: [id number] Acct: [id number] Name: BRITTON BECKER Rep #: [id number] : 1960 63 From: Óscar Castanon MD PCP: Dr. Alessandro Mendoza MD Status:[facility] Patient Name: BRITTON BECKER Study Date: 03/05/2024 Performing: Óscar Castanon MD Ht: 68 inches 172.72 cm : 1960 Wt: 230.01 lbs 104.33 kg Age: 63 Gender: male BSA: 2.17 PROCEDURE(S) PERFORMED DC01-(70527)LHC/COR/LV CLINICAL PROFILE AND INDICATIONS Indications: New Onset Angina <= 2 months Heart Failure: None Stress/Imaging Stress/Image Study Performed: No CAD Presentations: Unstable angina. CONCLUSIONS Severe single-vessel coronary artery disease involving the proximal to mid left anterior descending artery mildly calcified. Preserved left ventricular systolic function. RECOMMENDATIONS Referred for immediate PCI DESCRIPTION OF PROCEDURE The patient arrived to the procedure lab. The risks and benefits of the procedure as well as a full description of our services here and current unavailability of surgical backup were fully explained to the patient and/or their significant other prior to the catheterization. The Timeout was completed, verifying the correct patient and procedure. The patient's procedural site was prepped and draped in the usual fashion. Local anesthetic was given subcutaneously to right radial region with Lidocaine 2%. Using a modified Seldinger technique, arterial access was obtained via the right radial artery, a 6Fr sheath was inserted. Left Coronary Artery selective angiography was performed in multiple views using a 5 Fr. 4.0 [place] catheter. Right Coronary Artery selective angiography was then performed in multiple views using a 5 Fr. 4.0 [place] catheter. Left Ventriculography was performed in [place] projection using a 5 Fr. Pigtail catheter. LV to AO pullback pressures were then recorded. CORONARY ANGIOGRAPHY DOMINANCE: Co- Dominant LEFT HEART ASSESSMENT Left Ventricular Ejection Fraction: by LV Gram 65 % Normal LV wall motion Normal Left Ventricular systolic function LEFT MAIN: Angiographically normal LEFT ANTERIOR DESCENDING ARTERY: Mild calcification, Proximal long 95% stenotic lesion and mid focal 50% stenosis and distal mild tortuosity present. CIRCUMFLEX ARTERY: Mild luminal irregularities less than 30% RIGHT CORONARY ARTERY: Mild luminal irregularities less than 30% COMPLICATIONS No Complications PROCEDURE MEDICATIONS Versed 1 mg IV Fentanyl 50 mcg IV Baby Aspirin (81mg) 1 Tabs PO @ 03/05/2024 07:22:05 SUMMARY OF HEMODYNAMIC DATA Time AIR REST ECG 07:17:04 AO 155/58 (107) SA 08:05:19 LV 149/21, 38 08:10:03 LV 136/17, 25 08:10:12 LV 147/18, 22 08:11:24 LV 146/18, 22 08:11:26 LVp 150/16, 24 08:11:32 AOp 154/79 (109) 08:11:39 Signed By Óscar Castanon MD On 03/05/2024 08:23:19 Signed By Óscar Castanon MD On 03/05/2024 08:20:13 ____ Óscar Castanon MD 03/05/24 0824 Date ____ Óscar Castanon MD Cosigner Signature: Date ____ (if indicated) CC: Dr. Alessandro Mendoza MD; Dr. Óscar Castanon MD Date Dictated: 03/05/24 08 Date Transcribed: 03/05/24822 [employer]: [place] Signed Normal [facility] Cardiac Cath Interventionon 03-05-2024 Cardiac Cath Intervention [facility] Imaging Services [address] [place] [address] Cardiac Cath Intervention MR#: [id number] Acct: [id number] Name: BRITTON BECKER Rep #: [id number] : 1960 63 From: Óscar Castanon MD PCP: Dr. Alessandro Mendoza MD Status:[facility] Patient Name: BRITTON BECKER Study Date: 03/05/2024 Performing: Zheng Lewis MD Ht: 68 inches 172.72 cm : 1960 Wt: 230.3 lbs 104.33 kg Age: 63 Gender: male BSA: 2.17 PROCEDURE(S) PERFORMED IC12-(62453/C9600)[place] W/WO PTCA, SINGLE CORONARY ARTERY CLINICAL PROFILE AND CO-MORBIDITIES Indications: New Onset Angina <= 2 months Heart Failure: None Stress/Imaging Stress/Image Study Performed: No CAD Presentations: Unstable angina. CONCLUSIONS Successful [place] Prox LAD using [place] 3.5x30 mm, optimized proximally using 4.0 mm balloon RECOMMENDATIONS ASA Indefinitley P2Y12 inhibitors for atleast 6 months DESCRIPTION OF PROCEDURE The patient arrived to the procedure lab. The risks and benefits of the procedure as well as a full description of our services here and current unavailability of surgical backup were fully explained to the patient and/or their significant other prior to the catheterization. The Timeout was completed, verifying the correct patient and procedure. The patient's procedural site was prepped and draped in the usual fashion. Local anesthetic was given subcutaneously to right radial region with Lidocaine 2% Using a modified Seldinger technique,arterial access was obtained via the right radial artery, a 6Fr sheath was inserted. Left Coronary Artery selective angiography was performed in multiple views using a 5 Fr. 4.0 [place] catheter. Right Coronary Artery selective angiography was then performed in multiple views using a 5 Fr. 4.0 [place] catheter. Left Ventriculography was performed in HOPKINS projection using a 5 Fr. Pigtail catheter. LV to AO pullback pressures were then recorded.The images were reviewed and options discussed. A decision was then made to proceed with an Intervention, IVUS or other adjunct procedure. xb3 Guide catheter was inserted and engaged into the LCA. runthrough Guide wire was advanced to the LAD. brittany 3.5 x 30 Drug Eluting stent was advanced across the lesion in the LAD, proximal. Angiogram performed pre stent deployment. Angiogram performed post stent deployment. nc emerge 3.5 x 20 Balloon catheter was inserted post stent. Angiogram performed post balloon dilatation. nc euphora 4.0 x 6 Balloon catheter was inserted post stent. Angiogram performed post balloon dilatation. The arterial sheath was pulled and a TR Band was applied for hemostasis INTERVENTION INFORMATION LESION SITE: LAD (Proximal) lesion length: 28 mm, Lesion Complexity: High/C Pre Stenosis: 95 % Pre intervention COOKIE flow: 3 PROCEDURE: Drug Eluting Stent with post dilatation Post Stenosis: 0 % Post intervention COOKIE flow: 3 Lesion Devices: Terumo .014 180cm Runthrough Extra Floppy straight Cordis 6 Fr XB3.0 100cm Guide Catheter Medtronic 3.5 x 30 BRITTANY FRONTIER BOSTON [employer]i Sci NC EMERGE MR 3.50x20 BALLOON Medtronic NC EUPHORA RX 4.0x06 BALLOON COMPLICATIONS No Complications PROCEDURE MEDICATIONS Versed 1 mg IV Fentanyl 50 mcg IV Baby Aspirin (81mg) 1 Tabs PO @ 03/05/2024 07:22:05 Heparin given IA 03/05/2024 08:02:33 Heparin 8000 unit(s) IV 03/05/2024 08:21:40 Heparin 2000 unit(s) IV 03/05/2024 08:31:19 Heparin 3000 unit(s) IV 03/05/2024 08:51:06 Nitro 200 mcg IC 03/05/2024 08:31:13 Verapamil 2.5mg, Ntg 200mcgs, 2000 units of Heparin given IA 03/05/2024 08:02:33 SUMMARY OF HEMODYNAMIC DATA Time AIR REST ECG 07:17:04 AO 155/58 (107) SA 08:05:19 LV 149/21, 38 08:10:03 LV 136/17, 25 08:10:12 LV 147/18, 22 08:11:24 LV 146/18, 22 08:11:26 LVp 150/16, 24 08:11:32 AOp 154/79 (109) 08:11:39 AIR REST 08:55:07 Signed By Zheng Lewis MD On 03/05/2024 09:03:41 ____ Zheng Lewis MD 03/05/24 0904 Date ____ Óscar Agosto Signature: Date ____ (if indicated) CC: Dr. Alessandro Mendoza MD; Dr. Óscar Castanon MD Date Dictated: 03/05/24799 Date Transcribed: 03/05/24902 [employer]: [place] Signed Normal [facility] Echo Completeon 02-29-2024 Echo Complete [facility] [address] [place] [address] Echo Complete 02/29/24 0959 MR#: [id number] Acct: [id number] Name: BRITTON BECKER Rep #: [id number] : 1960 63 From: Luigi Montana MD Attending Dr: Dr. Juancarlos Marquez MD Status: [facility] Ordering Dr: Juancarlos Marquez MD Date: 02/29/24 Location: [facility] Sex: M C Admitted: Version 2 Reason For Study: CHEST PAIN Procedure This was a 2D Doppler, Color Flow transthoracic echocardiogram. Exam performed in department. Left Ventricle Normal LV size. The estimated ejection fraction is 70 %. Unable to assess diastolic dysfunction. No regional wall motion abnormalities noted. Right Ventricle Normal RV size. Normal systolic function. Atria The left and right atria are normal. No doppler evidence for ASD. Mitral Valve There is moderate mitral annular calcification. There is no mitral valve stenosis. No mitral valve insufficiency. Tricuspid Valve There is no tricuspid stenosis. Trivial tricuspid valve insufficiency. Unable to estimate RV systolic pressure due to insufficient tricuspid regurgitant envelope. Aortic Valve Mild diffuse aortic valve thickening. Mild aortic stenosis. No aortic valve insufficiency. Pulmonic Valve There is no pulmonic valvular stenosis. No pulmonic valve insufficiency. Great Vessels Normal aortic root. Pericardium/Pleural No pericardial effusion. MMode/2D Measurements Calculations LVIDd: 4.1 cm IVSd: 1.3 cm LVOT diam: 2.0 cm LVIDs: 2.5 cm LVPWd: 1.3 cm LVOT area: 3.1 cm2 RVDd: 3.8 cm FS: 39.7 % Ao root diam: 3.3 cm LAV(MOD-bp): 50.1 ml LVAd ap4: 38.8 cm2 LAV(MOD-bp) Indexed: 23.1 ml/m2 LVLd ap4: 9.2 cm LAV(MOD-sp2): 51.4 ml EDV(MOD-sp4): 133.8 ml LAV(MOD-sp4): 49.1 ml EDV(sp4-el): 138.5 ml LVAs ap4: 21.1 cm2 LVLs ap4: 7.7 cm ESV(MOD-sp4): 51.5 ml ESV(sp4-el): 49.2 ml EF(MOD-sp4): 61.5 % EF(sp4-el): 64.5 % SV(MOD-sp4): 82.3 ml SV(sp4-el): 89.4 ml LA A4 area: 18.0 cm2 SI(MOD-sp4): 37.9 ml/m2 LA dimension(2D): 3.7 cm RA A4 area: 16.9 cm2 TAPSE: 2.4 cm Time Measurements MV dec time: 0.21 sec Doppler Measurements Calculations MV E max chris: 85.6 cm/sec Lat Peak E' Chris: 10.8 cm/sec Med Peak E' Chris: 10.4 cm/sec MV A max chris: 97.3 cm/sec E/E' lat: 7.9 E/E' med: 8.2 MV E/A: 0.88 Ao V2 max: 234.3 cm/sec LV V1 max: 166.0 cm/sec SV(LVOT): 115.1 ml Ao max P.0 mmHg LV V1 max P.0 mmHg Ao V2 mean: 168.3 cm/sec LV V1 mean P.5 mmHg Ao mean P.8 mmHg LV V1 mean: 115.5 cm/sec Ao V2 VTI: 44.4 cm LV V1 VTI: 37.6 cm AV (velocity ratio): 0.85 NATALI(I,D): 2.6 cm2 NATALI(V,D): 2.2 cm2 ECHO/Echo Complete Interpretation Summary The estimated ejection fraction is 70 %. Unable to assess diastolic dysfunction. Mild aortic stenosis. Ordering Physician: Juancarlos Marquez Referring Physician: ALESSANDRO MENDOZA Performed By: Elodia Moses RDCS 03/01/24 1523 Date ____ Luigi Montana MD CC: Dr. Alessandro Mendoza MD; Dr. Juancarlos Marquez MD Date Dictated: 02/29/24 0959 Date Transcribed: 03/01/24 152 [employer]: [facility] 12 Lead EKG performed by KASSANDRA on 02-13-2024 12 Lead EKG performed by [facility] [address] [place] [address] 12 Lead EKG performed by [facility] 02/13/2450 MR#: [id number] Acct: [id number] Name: BRITTON BECKER Rep #: [id number] : 1960 63 From: Juancarlos Marquez MD Attending Dr: Dr. Juancarlos Marquez MD Status: DE P AMB Ordering Dr: Juancarlos Marquez MD Date: 02/13/24 Location: [facility] Sex: M C Admitted: [facility] [place]/12 Lead EKG performed by [facility] [place] [facility] ECG Report Interpretation Sinus Rhythm NS T wave changes lateralABNORMALElectronically signed on 02/13/2024 at 11:[address] Juancarlos Francoiswood Software Version 8610 02/13/24 1156 Date ____ Juancarlos Marquez MD CC: Dr. Alessandro Mendoza MD Date Dictated: 02/13/24949 Date Transcribed: 02/13/24949 [employer]: Signed Normal [facility] Basic Metabolic Profile (BMP )on 02-13-2024 BUN/CRE 18.0 RATIO Normal 10-20 [facility] Comment on above: Performed By: #### L 100.0100, L500.2500, L300.3900 ####[facility] [address] [place], [address] CA,Total 9.0 mg/dL Normal 8.5-10.1 [facility] Comment on above: Performed By: #### L 100.0100, L500.2500, L300.3900 ####[facility] [address] [place], [address] Chloride [Moles/Vol] 109 mmol/L High 98-107 [facility] Comment on above: Performed By: #### L 100.0100, L500.2500, L300.3900 ####[facility] [address] [place], [address] CO2 [Moles/Vol] 26.0 mmol/L Normal 21.0-32.0 [facility] Comment on above: Performed By: #### L 100.0100, L500.2500, L300.3900 ####[facility] [address] [place], [address] Creatinine [Mass/Vol] 0.83 mg/dL Normal 0.70-1.30 [facility] Comment on above: Result Comment: The validity of the calculated GFR GFRAA in patients over 70 years has not been determined. Clinical correlation is essential. Performed By: #### L 100.0100, L500.2500, L300.3900 ####[facility] [address] [place], [address] EST GFR - AA 120 mL/min Normal >60 [facility] Comment on above: Result Comment: Afri can Danish GFR Calc Performed By: #### L 100.0100, L500.2500, L300.3900 ####[facility] [address] [place], [address] GAP 5 Normal 5-15 [facility] Comment on above: Performed By: #### L 100.0100, L500.2500, L300.3900 ####[facility] [address] [place], [address] GFR/1.73 sq M.predicted among non-blacks MDRD (S/P/Bld) [Vol rate/Area] 99 mL/min/{1.73_m2} Normal >60 [facility] Comment on above: Result Comment: Non- GFR Calc Performed By: #### L 100.0100, L500.2500, L300.3900 ####[facility] [address] [place], [address] Glucose [Mass/Vol] 122 mg/dL High 74-106 [facility] Comment on above: Result Comment: Fast ing Glucose result from 100 to 125 mg/dL suggests IMPAIRED HOMEOSTASIS per A.D.A. criteria. Performed By: #### L 100.0100, L500.2500, L300.3900 ####[facility] [address] [place], [address] Potassium [Moles/Vol] 4.5 mmol/L Normal 3.5-5.1 [facility] Comment on above: Performed By: #### L 100.0100, L500.2500, L300.3900 ####[facility] [address] [place], [address] Sodium [Moles/Vol] 140 mmol/L Normal 136-145 [facility] Comment on above: Performed By: #### L 100.0100, L500.2500, L300.3900 ####[facility] [address] [place], [address] Urea nitrogen [Mass/Vol] 15 mg/dL Normal 7-18 [facility] Comment on above: Performed By: #### L 100.0100, L500.2500, L300.3900 ####[facility] [address] [place], [address] CBC W/Diff, Automatedon 01-26 Absolute Lymph 2.32 X10 3/uL Normal 0.83-4.51 [facility] Comment on above: Performed By: #### L 100.0100, L500.2500, L300.3900 ####[facility] [address] [place], [address] Absolute Neut 3.5 X10 3/uL Normal 2.0-7.7 [facility] Comment on above: Performed By: #### L 100.0100, L500.2500, L300.3900 ####[facility] [address] [place], [address] Basophils/100 WBC (Bld) 0.4 % Normal 0-1 [facility] Comment on above: Performed By: #### L 100.0100, L500.2500, L300.3900 ####[facility] [address] [place], [address] Eosinophils/100 WBC (Bld) 3.4 % Normal 0-5 [facility] Comment on above: Performed By: #### L 100.0100, L500.2500, L300.3900 ####[facility] [address] [place], [address] Erythrocyte distribution width (RBC) [Ratio] 12.8 % Normal 11.6-14.6 [facility] Comment on above: Performed By: #### L 100.0100, L500.2500, L300.3900 ####[facility] [address] [place], [address] Hematocrit (Bld) [Volume fraction] 42.6 % Normal 40-54 [facility] Comment on above: Performed By: #### L 100.0100, L500.2500, L300.3900 ####[facility] [address] [place], [address] Hemoglobin (Bld) [Mass/Vol] 14.3 g/dL Normal 13.0-16.5 [facility] Comment on above: Performed By: #### L 100.0100, L500.2500, L300.3900 ####[facility] [address] [place], [address] IG% 0.300 Normal 0.0-0.9 [facility] Comment on above: Result Comment: IG% - Immature Granulocytes (promyelocytes, myelocytes and metamyelocytes) > 1% indicates that a LEFT SHIFT is Present. Performed By: #### L 100.0100, L500.2500, L300.3900 ####[facility] [address] [place], [address] Lymphocytes/100 WBC (Bld) 34.4 % Normal 19-41 [facility] Comment on above: Performed By: #### L 100.0100, L500.2500, L300.3900 ####[facility] [address] [place], [address] MCH (RBC) [Entitic mass] 29.7 pg Normal 27.0-32.0 [facility] Comment on above: Performed By: #### L 100.0100, L500.2500, L300.3900 ####[facility] [address] [place], [address] MCHC (RBC) [Mass/Vol] 33.6 g/dL Normal 32-36 [facility] Comment on above: Performed By: #### L 100.0100, L500.2500, L300.3900 ####[facility] [address] [place], [address] MCV (RBC) [Entitic vol] 88.6 fL Normal 80-94 [facility] Comment on above: Performed By: #### L 100.0100, L500.2500, L300.3900 ####[facility] [address] [place], [address] Monocytes/100 WBC (Bld) 10.2 % High 0-10 [facility] Comment on above: Performed By: #### L 100.0100, L500.2500, L300.3900 ####[facility] [address] [place], [address] Neutrophils/100 WBC (Bld) 51.3 % Normal 47-70 [facility] Comment on above: Performed By: #### L 100.0100, L500.2500, L300.3900 ####[facility] [address] [place], [address] Nucleated RBC (Bld) [#/Vol] 0 10*3/uL Normal 0-5 [facility] Comment on above: Performed By: #### L 100.0100, L500.2500, L300.3900 ####[facility] [address] [place], [address] Platelet mean volume (Bld) [Entitic vol] 9.8 fL Normal 6.2-12.0 [facility] Comment on above: Performed By: #### L 100.0100, L500.2500, L300.3900 ####[facility] [address] [place], [address] Platelets (Bld) [#/Vol] 286 10*3/uL Normal 150-450 [facility] Comment on above: Performed By: #### L 100.0100, L500.2500, L300.3900 ####[facility] [address] [place], [address] RBC (Bld) [#/Vol] 4.81 10*6/uL Normal 4.6-6.2 [facility] Comment on above: Performed By: #### L 100.0100, L500.2500, L300.3900 ####[facility] [address] [place], [address] RDW SD 41.7 fl Normal 35.1-43.9 [facility] Comment on above: Performed By: #### L 100.0100, L500.2500, L300.3900 ####[facility] [address] [place], [address] WBC (Bld) [#/Vol] 6.7 10*3/uL Normal 4.4-11.0 [facility] Comment on above: Performed By: #### L 100.0100, L500.2500, L300.3900 ####[facility] [address] [place], [address] Cardiology Visit Reporton Cardiology Visit Report [facility] [address] [place] [address] OFFICE VISIT Date of Service: 02/13/24 MR#: [id number] Acct: [id number] Name: BRITTON BECKER Rep #: [id number] : 1960 Provider: Dr. Juancarlos abernathy MD Age/Sex: 63/M Location: [facility] Status: Signed HPI HPI History of Present Illness Details: Patient comes in for new patient visit is a pleasant 63-year-old white male. His accompanied him and she is status post surgical intervention for coronary issues. Who patient reports that he started having some chest discomfort and fatigue in October 2023. He can predict this by walking fast or by doing his chores at a rapid pace. He does notice that if he is slows down or stops the symptoms resolve within just a few minutes. If he starts up again they recur. The patient is also noticed that some of this is associated with burping but not associated with p.o. intake. He did notice that if he drinks a cold glass of water the symptoms resolve when they have occurred with activity. The patient also noticed that the last couple of weeks when the morning is been cooler that he is having the symptoms and more frequently and coming on with less activity. The patient is currently on atorvastatin and amlodipine for his blood pressure. His cardiac risk factors include hypertension he is borderline diabetic by his report hyperlipidemia. He does not have a significant family history and he is non-smoker. The patient denies any syncope or near syncope denies any PND orthopnea denies any pain at rest. 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 Is patient in pain?: No Allergies No Known Allergies Allergy (Unverified 02/13/24 09:54) Medications ???Medication ???Instructions ???Recorded ???Confirmed ???Type amlodipine 5 mg tablet 5 mg PO QDAY 01/16/24 01/16/24 History atorvastatin 40 mg tablet 40 mg PO QDAY 01/16/24 01/16/24 History telmisartan 40 mg tablet 40 mg PO QDAY 01/16/24 01/16/24 History Have you fallen in the past year?: No PFSH Medical History Hypertension Sleep apnea GERD (gastroesophageal reflux disease) Penile cyst Scrotal cyst Dyslipidemia Obesity Surgical History Hx of surgical amputation of finger Family History Grandfather CAD (coronary artery disease) Social History Smoking Status: Never smoker ROS Const Const: Positive for difficulty sleeping; Negative for fatigue, weakness, headache(s) or daytime sleepiness ENT ENT: Negative for headache(s), dizziness or Nosebleed/epistaxis Cardio Chest Pain: Yes Frequency: daily Onset: exercise Location: epigastric Duration: minutes Exacerbation: exercise Relieving: rest Palpitations: Yes feels like its: thumping Edema: None Resp Respiratory: Positive for SOB with activity; Negative for SOB at rest, SOB orthopnea SOB lying down or Cough GI GI: Positive for heartburn; Negative nausea or vomiting Neuro Neuro: Negative for dizziness, lightheadedness, near syncope, headache(s) or weakness Endo Endo: Negative for fatigue Cardiology Exam Const Appearance: cooperative, comfortable and no acute distress Nutritional Appearance: obese and overweight Head Head: normal to inspection Eyes General: appearance normal, both eyes and all related structures Neck Neck: normal visual inspection and no JVD Carotids: Negative bruit Chest Chest inspection: normal inspection of the chest Auscultation: Bilateral: Clear to Auscultation Cardio Rate: regular rate Rhythm: regular rhythm Heart sounds: S1 normal, S2 normal and murmur; Negative rub or gallop Murmur: Grade 1/6, soft, mid systolic and RLSB GI GI: normal to inspection and obese Neuro General: patient alert and patient oriented x3 Skin Skin: no rashes or lesions noted Extremities Pulses: Normal: Right Posterior Tibial Pulse, Left Posterior Tibial Pulse, Right Radial Pulse and Left Radial Pulse Lower Extremity Edema: None: Bilateral Psych Psychological: normal affect Supplemental Info Supplemental Information Labs: No Data to Display Diagnostics: Electrocardiogram Pulmonary: No Data to Display Past Visits: Cardiology Visit 02/13/24 Assessment and Plan Assessment and Plan (1) Accelerating angina: Status: Acute Plan: Patient's s (more content not included)... Normal [facility] Chest PA and Lateralon 02-12 Chest PA and Lateral [facility] [address] [place], [place] [id number] Chest PA and Lateral MR#: [id number] Acct: [id number] Name: BRITTON BECKER Rep #: [id number] : 1960 M 63 From: Cricket Quiroga PCP: Dr. Alessandro Mendoza MD Status: REG CLI Study: Chest PA and Lateral Date of Exam: 02/13/24 Exam# [id number] Ordering Dr: Juancarlos Marquez MD [id number] INDICATION: Heart Cath EXAMINATION/TECHNIQUE: X-RAY - XR Chest 2 Views COMPARISON: No relevant prior comparison study available FINDINGS: LINES/DEVICES: None. LUNGS: No consolidation, edema or effusion. No pneumothorax. MEDIASTINUM AND CARDIOVASCULAR STRUCTURES: Cardiac silhouette not enlarged. Mild tortuosity of the thoracic aorta. Central airways and mediastinal contour are unremarkable. BONES AND SOFT TISSUES: Unremarkable. RAD/Chest PA and Lateral IMPRESSION: No radiographic evidence of acute cardiopulmonary disease. Electronically Signed: Cricket Cox MD at 11:58 EST , CC: Dr. Alessandro Mendoza MD; Dr. Juancarlos Marquez MD [employer]: Signed Normal [facility] Prothrombin Time w/INRon INR Coag (PPP) [Relative time] 0.9 {INR} Normal [facility] Comment on above: Performed By: #### L 100.0100, L500.2500, L300.3900 ####[facility] [address] [place], [address] PT Coag (PPP) [Time] 12.4 s Normal 11.7-14.9 [facility] Comment on above: Performed By: #### L 100.0100, L500.2500, L300.3900 ####[facility] [address] [place], [address] Encounters Encounter Date Encounter Type Care Provider Facility Start: 05-17-2024 End: 05-17-2024 ambulatory Alessandro Wrighthman Facility:[facility] Start: 03-05-2024 ambulatory Zheng Joineran Facility:[facility] Start: 03-05-2024 End: 03-06-2024 ambulatory Alessandro Reji Facility:[facility] Start: 02-29-2024 ambulatory Elginmessigeno Elgincristychaceandreas Orourke cility:[facility] Start: 02-29-2024 End: 02-29-2024 ambulatory Juancarlos Marquez Facility:[facility] Start: 02-13-2024 End: 02-13-2024 ambulatory Alessandro Reji Facility:[facility] Start: 02-13-2024 End: 02-13-2024 ambulatory [facility] Facility:[facility] Payers Date Payer Category Payer Self-pay 2024 Unknown [id number] Unknown [id number] 2.16.8 [id number] Unknown [id number] 2.16.8 [id number] Unknown [id number] 2.16.8 [id number] Unknown [id number] 2.16.8 [id number] Unknown [id number] 2.16.8 [id number] Unknown [id number] 2.16.8 [id number] Unknown [id number] 2.16.8 [id number] Unknown [id number] 2.16.8 [id number] Summary Purpose Family History No Family History Records Found Advance Directives No Advanced Directives Records Found Additional Source Comments (unrecognized sect ion and content) No Status Records Found INFORMATION SOURCE (unrecogn ized section and content) DATE CREATED AUTHOR 05/19/2024 [facility] FOR RECORDS PERTAINING TO PATIENTS WHO ARE OR HAVE BEEN ENROLLED IN A CHEMICAL DEPENDENCY/SUBSTANCEABUSE PROGRAM, SOME INFORMATION MAY BE OMITTED. This clinical summary was aggregated from multiple sources. Caution should be exercised in using it in the provision of clinical care. This summary normalizes information from multiple sources, and as a consequence, information in this document may materially change the coding, format and clinical context of patient data. In addition, data may be omitted in some cases. CLINICAL DECISIONS SHOULD BE BASED ON THE PRIMARY CLINICAL RECORDS. [facility]. provides no warranty or guarantee of the accuracy or completeness of information in this document.
== END | disposition home or self-care (01) ==
LOC: LAB 09:58
PROVIDERS: PCP Family Medicine; Referring Provider Nurse Practitioner Family; Visit Provider Nurse Practitioner Family
DX: E78.5 Hyperlipidemia, unspecified (principal)
CPT/HCPCS: 36415; 80061; 80076

== ENCOUNTER → 2025-03-01 | Outpatient (CLI) | payer SELFPAY ==
--- OUTSIDE RECORDS SUMMARY | 2025-03-01 20:01 | XMS RPT_ITS | CCD ---
Author Organization [facility] Care Team Providers Care Casino Floor Supervisor Name Role Phone Alessandro Mendoza Referring Unavailable Reji, Alessandro Primary Care Unavailable Juancarlos Marquez Attending Unavailable Reji, Alessandro Primary Care Unavailable Jimmy, Juancarlos Attending Unavailable Jimmy, Juancarlos Referring Unavailable Jimmy, Juancarlos Attending Unavailable Marquez, Juancarlos Referring Unavailable Reji, Alessandro Primary Care Unavailable Reji, Alessandro Primary Care Unavailable Jimmy, Juancarlos Attending Unavailable Rylan Bender Referring Unavailable Reji, Alessandro Primary Care Unavailable Lg, Óscar Attending Unavailable Lg, [place] Referring Unavailable Lg, [place] Admitting Unavailable Luigi Montana Attending Unavailabl e Reji, Alessandro Primary Care Unavailable JoshuaZheng corado Attending Unavailable Reji, Alessandro Primary Care Unavailable Lg, Óscar Consulting Unavailable Lg, [place] Attending Unavailable Lg, [place] Referring Unavailable Reji, Alessandro Primary Care Unavailable Lg, [place] Admitting Unavailable Problems Active Problems Problem Classification Problem Date Documented Date Episodic/Chronic Coronary atherosclerosis and other heart disease (3 sources) Atherosclerotic heart disease of [place] coronary artery with unstable angina pectoris; Translations: [Atherosclerotic heart disease of [place] coronary artery without angina pectoris] Onset: 03-12-2024 [...] Facility Cardiology Visit Reporton Cardiology Visit Report [facility] [address] [place] [address] OFFICE VISIT Date of Service: 05/17/24 MR#: [id number] Acct: [id number] Name: BRITTON BECKER Rep #: [id number] : 1960 Provider: Dr. Juancarlos abernathy MD Age/Sex: 63/M Location: [facility] Status: Signed HPI HPI History of [...] air Intake Visit Reasons: 2 M FU Brace Maker Required: No Accompanied by: Daughter, Is patient [...] have b (more content not included)... Normal [facility] ACT Activated Clotting Timeo n 03-06-2024 ACTk CLOT TIME 262 sec High 74-137 [facility] Comment on above: Performed By: #### L 9100.0100 #### [facility] Laboratory [address] [place], [address] CBC-Complete Blood Cnt No Di ffon 03-06-2024 Erythrocyte distribution width (RBC) [Ratio] 12.7 % Normal 11.6-14.6 [facility] Comment on above: Performed By: #### L 100.0500, L500.4050 #### [facility] [address] [place], [address] Hematocrit (Bld) [Volume fraction] 41.9 % Normal 40-54 [facility] Comment on above: Performed By: #### L 100.0500, L500.4050 #### [facility] [address] [place], [address] Hemoglobin (Bld) [Mass/Vol] 13.7 g/dL Normal 13.0-16.5 [facility] Comment on above: Performed By: #### L 100.0500, L500.4050 #### [facility] [address] [place], [address] MCH (RBC) [Entitic mass] 28.8 pg Normal 27.0-32.0 [facility] Comment on above: Performed By: #### L 100.0500, L500.4050 #### [facility] [address] [place], [address] MCHC (RBC) [Mass/Vol] 32.7 g/dL Normal 32-36 [facility] Comment on above: Performed By: #### L 100.0500, L500.4050 #### [facility] [address] [place], [address] MCV (RBC) [Entitic vol] 88.2 fL Normal 80-94 [facility] Comment on above: Performed By: #### L 100.0500, L500.4050 #### [facility] [address] [place], [address] Platelet mean volume (Bld) [Entitic vol] 9.3 fL Normal 6.2-12.0 [facility] Comment on above: Performed By: #### L 100.0500, L500.4050 #### [facility] [address] [place], [address] Platelets (Bld) [#/Vol] 273 10*3/uL Normal 150-450 [facility] Comment on above: Performed By: #### L 100.0500, L500.4050 #### [facility] [address] [place], [address] RBC (Bld) [#/Vol] 4.75 10*6/uL Normal 4.6-6.2 [facility] Comment on above: Performed By: #### L 100.0500, L500.4050 #### [facility] [address] [place], [address] RDW SD 41.1 fl Normal 35.1-43.9 [facility] Comment on above: Performed By: #### L 100.0500, L500.4050 #### [facility] [address] [place], [address] WBC (Bld) [#/Vol] 7.9 10*3/uL Normal 4.4-11.0 [facility] Comment on above: Performed By: #### L 100.0500, L500.4050 #### [facility] [address] [place], [address] Comprehensive Metabolic Prof ilon 03-06-2024 Albumin [Mass/Vol] 3.9 g/dL Normal 3.2-5.0 [facility] Comment on above: Performed By: #### L 100.0500, L500.4050 ####[facility] [address] [place], [address] Albumin/Globulin [Mass ratio] 1.5 {ratio} Normal 0.9-2.4 [facility] Comment on above: Performed By: #### L 100.0500, L500.4050 ####[facility] [address] [place], [address] ALK P 66 U/L Normal 45-117 [facility] Comment on above: Performed By: #### L 100.0500, L500.4050 ####[facility] [address] [place], [address] ALT [Catalytic activity/Vol] 43 U/L Normal 16-61 [facility] Comment on above: Performed By: #### L 100.0500, L500.4050 ####[facility] [address] [place], [address] AST [Catalytic activity/Vol] 20 U/L Normal 15-37 [facility] Comment on above: Performed By: #### L 100.0500, L500.4050 ####[facility] [address] [place], [address] Bilirubin [Mass/Vol] 0.50 mg/dL Normal 0.20-1.00 [facility] Comment on above: Result Comment: For patients on eltrombopag therapy, use of Dimension [place] TBIL is not recommended. Performed By: #### L 100.0500, L500.4050 ####[facility] [address] [place], [address] BUN/CRE 19.1 RATIO Normal 10-20 [facility] Comment on above: Performed By: #### L 100.0500, L500.4050 ####[facility] [address] [place], [address] CA,Total 9.0 mg/dL Normal 8.5-10.1 [facility] Comment on above: Performed By: #### L 100.0500, L500.4050 ####[facility] [address] [place], [address] Chloride [Moles/Vol] 110 mmol/L High 98-107 [facility] Comment on above: Performed By: #### L 100.0500, L500.4050 ####[facility] [address], [address] CO2 [Moles/Vol] 27.0 mmol/L Normal 21.0-32.0 [facility] Comment on above: Performed By: #### L 100.0500, L500.4050 ####[facility] [address] [place], [address] Creatinine [Mass/Vol] 0.78 mg/dL Normal 0.70-1.30 [facility] Comment on above: Result Comment: The validity of the calculated GFR GFRAA in patients over 70 years has not been determined. Clinical correlation is essential. Performed By: #### L 100.0500, L500.4050 ####[facility] [address] [place], [address] ECRCL 116.00 ml/min Normal [facility] Comment on above: Performed By: #### L 100.0500, L500.4050 ####[facility] [address] [place], [address] EST GFR - AA 129 mL/min Normal >60 [facility] Comment on above: Result Comment: Afri can Hungarian GFR Calc Performed By: #### L 100.0500, L500.4050 ####[facility] [address] [place], [address] GAP 4 Low 5-15 [facility] Comment on above: Performed By: #### L 100.0500, L500.4050 ####[facility] [address] [place], [address] GFR/1.73 sq M.predicted among non-blacks MDRD (S/P/Bld) [Vol rate/Area] 106 mL/min/{1.73_m2} Normal >60 [facility] Comment on above: Result Comment: Non- GFR Calc Performed By: #### L 100.0500, L500.4050 ####[facility] [address] [place], [address] Globulin (S) [Mass/Vol] 2.6 g/dL Normal 2.2-4.2 [facility] Comment on above: Performed By: #### L 100.0500, L500.4050 ####[facility] [address] [place], [address] Glucose [Mass/Vol] 110 mg/dL High 74-106 [facility] Comment on above: Result Comment: Fast ing Glucose result from 100 to 125 mg/dL suggests IMPAIRED HOMEOSTASIS per A.D.A. criteria. Performed By: #### L 100.0500, L500.4050 ####[facility] [address] [place], [address] Potassium [Moles/Vol] 4.2 mmol/L Normal 3.5-5.1 [facility] Comment on above: Performed By: #### L 100.0500, L500.4050 ####[facility] [address] [place], [address] Sodium [Moles/Vol] 140 mmol/L Normal 136-145 [facility] Comment on above: Performed By: #### L 100.0500, L500.4050 ####[facility] [address] [place], [address] T PROT 6.5 g/dL Normal 6.4-8.2 [facility] Comment on above: Performed By: #### L 100.0500, L500.4050 ####[facility] [address] [place], [address] Urea nitrogen [Mass/Vol] 15 mg/dL Normal 7-18 [facility] Comment on above: Performed By: #### L 100.0500, L500.4050 ####[facility] [address] [place], [address] Discharge Instructionon 02-25 Discharge Instruction [facility] Medical Records Department [address] [place] [address] Instructions for Home/Discharge Instructions 03/06/24 0751 MR#: [id number] Acct: [id number] Name: BRITTON BECKER Rep #: [id number] : 1960 63 From: Óscar Castanon MD [...] Admission Admit Date/Time: 03/05/24 08:48 Attending Provider: sÓcar Castanon Primary Care Provider: Alessandro Mendoza Discharge [...] can be placed): Home, Self Care 03/06/24 8870 Óscar Castanon MD CC: Dr. Alessandro Mendoza MD Signed Normal [facility] 12 Lead EKGon 03-05-2024 12 Lead EKG [facility] Cardiovascular Services [address] [place] [address] 12 Lead EKG 03/06/24 0546 MR#: [id number] Acct: [id number] Name: BRITTON BECKER Rep #: [id number] : 1960 63 From: Óscar Castanon MD Attending Dr: Dr. Óscar Castanon MD Status: ADM I NO Ordering Dr: Zheng Lewis MD Date: 03/05/24 Location: [facility] Sex: M C Admitted: 03/05/24 Test [...] UNCONFIRMED Confirmed by LG FLOOD, ÓSCAR ([id number]), editor index GOLDEN HARRISON ([id number]) on 03/06/2024 8:21:25 AM Referred By: Óscar Castanon Confirmed By: ÓSCAR CASTANON MD 03/06/24820 Date ____ Óscar Castanon MD CC: Dr. Zheng Lewis MD; Dr. Alessandro Mendoza MD; Dr. Óscar Castanon MD Signed Normal [facility] ACT Activated Clotting Timeo n 03-05-2024 ACTk CLOT TIME 239 sec High 74-137 [facility] Comment on above: Performed By: #### L 9100.0100 ####[facility] [address] [place], [address] Cardiac Cath Diagnosticon Cardiac Cath Diagnostic [facility] Imaging Services [address] [place] [address] Cardiac Cath Diagnostic MR#: [id number] Acct: [id number] Name: BRITTON BECKER Rep #: [id number] : 1960 63 From: Óscar Castanon MD PCP: Dr. Alessandro Mendoza MD Status:[facility] Patient Name: BRITTON BECKER Study Date: 03/05/2024 Performing: Óscar Castanon MD Ht: 68 inches 172.72 cm : 1960 Wt: 230.01 lbs 104.33 kg Age: 63 Gender: male BSA: 2.17 PROCEDURE(S) PERFORMED DC01-(21973)LHC/COR/LV CLINICAL PROFILE AND INDICATIONS Indications: New Onset [...] multiple views using a 5 Fr. 4.0 [place] catheter. Right Coronary Artery selective angiography was then performed in multiple views using a 5 Fr. 4.0 [place] catheter. Left Ventriculography was performed in [place] [...] Date Dictated: 03/05/24 08 Date Transcribed: 03/05/24822 Strip [place] Supervisor: [place] Signed Normal [facility] Cardiac Cath Interventionon 03-05-2024 Cardiac Cath Intervention [facility] Imaging Services [address] [place] [address] Cardiac Cath Intervention MR#: [id number] Acct: [id number] Name: BRITTON BECKER Rep #: [id number] : 1960 63 From: Óscar Castanon MD PCP: Dr. Alessandro Mendoza MD Status:[facility] Patient Name: BRITTON BECKER Study Date: 03/05/2024 Performing: Zheng Lewis MD Ht: 68 inches 172.72 cm : 1960 Wt: 230.3 lbs 104.33 kg Age: 63 Gender: male BSA: 2.17 PROCEDURE(S) PERFORMED IC12-(68488/C9600)[place] W/WO PTCA, SINGLE CORONARY ARTERY CLINICAL PROFILE AND CO-MORBIDITIES Indications: New Onset Angina <= 2 months Heart Failure: None Stress/Imaging Stress/Image Study Performed: No CAD Presentations: Unstable angina. CONCLUSIONS Successful [place] Prox LAD using Brittany [place] 3.5x30 mm, optimized proximally using 4.0 mm [...] multiple views using a 5 Fr. 4.0 [place] catheter. Right Coronary Artery selective angiography was then performed in multiple views using a 5 Fr. 4.0 [place] catheter. Left Ventriculography was performed in [place] [...] MD Date Dictated: 03/05/24799 Date Transcribed: 03/05/24902 [place] Supervisor: [place] Signed Normal [facility] Echo Completeon 02-29-2024 Echo Complete [facility] Cardiovascular Services [address] [place] [address] Echo Complete 02/29/24 0959 MR#: [id number] Acct: [id number] Name: BRITTON BECKER Rep #: [id number] : 1960 63 From: Luigi Montana MD Attending Dr: Dr. Juancarlos Marquez MD [facility]: Juancarlos Marquez MD Date: 02/29/24 Location: [facility] Sex: M C Admitted: Version 2 Reason [...] Dictated: 02/29/24 0959 Date Transcribed: 03/01/24 152 [place] Supervisor: [facility] 12 Lead EKG performed by KASSANDRA on 02-13-2024 12 Lead EKG performed by [facility] [address] [place] [address] 12 Lead EKG performed by [facility] 02/13/2450 MR#: [id number] Acct: [id number] Name: BRITTON BECKER Rep #: [id number] : 1960 63 From: Juancarlos Marquez MD Attending Dr: Dr. Juancarlos Marquez MD Status: DE P AMB Ordering Dr: Juancarlos Marquez MD Date: 02/13/24 Location: [facility] Sex: M C Admitted: [facility]/12 Lead EKG performed by [facility] ECG Report Interpretation Sinus Rhythm NS T wave changes lateralABNORMALElectronically signed on 02/13/2024 at 11:[address] Juancarlos Francoiswood Software Version 8610 02/13/24 1156 Date ____ Juancarlos Marquez MD CC: Dr. Alessandro Mendoza MD Date Dictated: 02/13/24949 Date Transcribed: 02/13/24949 [place] Supervisor: Signed Normal [facility] Basic Metabolic Profile (BMP )on 02-13-2024 BUN/CRE 18.0 RATIO Normal 10-20 [facility] Comment on above: Performed By: #### L 100.0100, L500.2500, L300.3900 ####[facility] [address], [address] CA,Total 9.0 mg/dL Normal 8.5-10.1 [facility] Comment on above: Performed By: #### L 100.0100, L500.2500, L300.3900 ####[facility] [address] [place], [address] Chloride [Moles/Vol] 109 mmol/L High 98-107 [facility] Comment on above: Performed By: #### L 100.0100, L500.2500, L300.3900 ####[facility] [address] [place], [address] CO2 [Moles/Vol] 26.0 mmol/L Normal 21.0-32.0 [facility] Comment on above: Performed By: #### L 100.0100, L500.2500, L300.3900 ####[facility] [address] [place], [address] Creatinine [Mass/Vol] 0.83 mg/dL Normal 0.70-1.30 [facility] Comment on above: Result Comment: The validity of the calculated GFR GFRAA in patients over 70 years has not been determined. Clinical correlation is essential. Performed By: #### L 100.0100, L500.2500, L300.3900 ####[facility] [address] [place], [address] EST GFR - AA 120 mL/min Normal >60 [facility] Comment on above: Result Comment: Afri can Hungarian GFR Calc Performed By: #### L 100.0100, L500.2500, L300.3900 ####[facility] [address] [place], [address] GAP 5 Normal 5-15 [facility] Comment on above: Performed By: #### L 100.0100, L500.2500, L300.3900 ####[facility] [address] [place], [address] GFR/1.73 sq M.predicted among non-blacks MDRD (S/P/Bld) [Vol rate/Area] 99 mL/min/{1.73_m2} Normal >60 [facility] Comment on above: Result Comment: Non- GFR Calc Performed By: #### L 100.0100, L500.2500, L300.3900 ####[facility] [address] [place], [address] Glucose [Mass/Vol] 122 mg/dL High 74-106 [facility] Comment on above: Result Comment: Fast ing Glucose result from 100 to 125 mg/dL suggests IMPAIRED HOMEOSTASIS per A.D.A. criteria. Performed By: #### L 100.0100, L500.2500, L300.3900 ####[facility] [address] [place], [address] Potassium [Moles/Vol] 4.5 mmol/L Normal 3.5-5.1 [facility] Comment on above: Performed By: #### L 100.0100, L500.2500, L300.3900 ####[facility] [address] [place], [address] Sodium [Moles/Vol] 140 mmol/L Normal 136-145 [facility] Comment on above: Performed By: #### L 100.0100, L500.2500, L300.3900 ####[facility] [address] [place], [address] Urea nitrogen [Mass/Vol] 15 mg/dL Normal 7-18 [facility] Comment on above: Performed By: #### L 100.0100, L500.2500, L300.3900 ####[facility] [address] [place], [address] CBC W/Diff, Automatedon 01-26 Absolute Lymph 2.32 X10 3/uL Normal 0.83-4.51 [facility] Comment on above: Performed By: #### L 100.0100, L500.2500, L300.3900 ####[facility] [address] [place], [address] Absolute Neut 3.5 X10 3/uL Normal 2.0-7.7 [facility] Comment on above: Performed By: #### L 100.0100, L500.2500, L300.3900 ####[facility] [address] [place], [address] Basophils/100 WBC (Bld) 0.4 % Normal 0-1 [facility] Comment on above: Performed By: #### L 100.0100, L500.2500, L300.3900 ####[facility] [address] [place], [address] Eosinophils/100 WBC (Bld) 3.4 % Normal 0-5 [facility] Comment on above: Performed By: #### L 100.0100, L500.2500, L300.3900 ####[facility] [address] [place], [address] Erythrocyte distribution width (RBC) [Ratio] 12.8 % Normal 11.6-14.6 [facility] Comment on above: Performed By: #### L 100.0100, L500.2500, L300.3900 ####[facility] [address] [place], [address] Hematocrit (Bld) [Volume fraction] 42.6 % Normal 40-54 [facility] Comment on above: Performed By: #### L 100.0100, L500.2500, L300.3900 ####[facility] [address] [place], [address] Hemoglobin (Bld) [Mass/Vol] 14.3 g/dL Normal 13.0-16.5 [facility] Comment on above: Performed By: #### L 100.0100, L500.2500, L300.3900 ####[facility] [address] [place], [address] IG% 0.300 Normal 0.0-0.9 [facility] Comment on above: Result Comment: IG% - Immature Granulocytes (promyelocytes, myelocytes and metamyelocytes) > 1% indicates that a LEFT SHIFT is Present. Performed By: #### L 100.0100, L500.2500, L300.3900 ####[facility] [address] [place], [address] Lymphocytes/100 WBC (Bld) 34.4 % Normal 19-41 [facility] Comment on above: Performed By: #### L 100.0100, L500.2500, L300.3900 ####[facility] [address] [place], [address] MCH (RBC) [Entitic mass] 29.7 pg Normal 27.0-32.0 [facility] Comment on above: Performed By: #### L 100.0100, L500.2500, L300.3900 ####[facility] [address] [place], [address] MCHC (RBC) [Mass/Vol] 33.6 g/dL Normal 32-36 [facility] Comment on above: Performed By: #### L 100.0100, L500.2500, L300.3900 ####[facility] [address] [place], [address] MCV (RBC) [Entitic vol] 88.6 fL Normal 80-94 [facility] Comment on above: Performed By: #### L 100.0100, L500.2500, L300.3900 ####[facility] [address] [place], [address] Monocytes/100 WBC (Bld) 10.2 % High 0-10 [facility] Comment on above: Performed By: #### L 100.0100, L500.2500, L300.3900 ####[facility] [address] [place], [address] Neutrophils/100 WBC (Bld) 51.3 % Normal 47-70 [facility] Comment on above: Performed By: #### L 100.0100, L500.2500, L300.3900 ####[facility] [address] [place], [address] Nucleated RBC (Bld) [#/Vol] 0 10*3/uL Normal 0-5 [facility] Comment on above: Performed By: #### L 100.0100, L500.2500, L300.3900 ####[facility] [address] [place], [address] Platelet mean volume (Bld) [Entitic vol] 9.8 fL Normal 6.2-12.0 [facility] Comment on above: Performed By: #### L 100.0100, L500.2500, L300.3900 ####[facility] [address] [place], [address] Platelets (Bld) [#/Vol] 286 10*3/uL Normal 150-450 [facility] Comment on above: Performed By: #### L 100.0100, L500.2500, L300.3900 ####[facility] [address] [place], [address] RBC (Bld) [#/Vol] 4.81 10*6/uL Normal 4.6-6.2 [facility] Comment on above: Performed By: #### L 100.0100, L500.2500, L300.3900 ####[facility] [address] [place], [address] RDW SD 41.7 fl Normal 35.1-43.9 [facility] Comment on above: Performed By: #### L 100.0100, L500.2500, L300.3900 ####[facility] [address] [place], [address] WBC (Bld) [#/Vol] 6.7 10*3/uL Normal 4.4-11.0 [facility] Comment on above: Performed By: #### L 100.0100, L500.2500, L300.3900 ####[facility] [address] [place], [address] Cardiology Visit Reporton Cardiology Visit Report [facility] [address] [place] [address] OFFICE VISIT Date of Service: 02/13/24 MR#: [id number] Acct: [id number] Name: BRITTON BECKER Rep #: [id number] : 1960 Provider: Dr. Juancarlos abernathy MD Age/Sex: 63/M Location: [facility] [place] Status: Signed HPI HPI History of Present [...] Intake Visit Reasons: Chest Discomfort Fatigue (Yulia) Brace Maker Required: No Is patient in pain?: No [...] Patient's s (more content not included)... Normal [facility] Chest PA and Lateralon 02-12 Chest PA and Lateral [facility] [address] [place], [place] [id number] Chest PA and Lateral MR#: [id number] Acct: [id number] Name: BRITTON BECKER Rep #: [id number] : 1960 M 63 From: Cricket Quiroga PCP: Dr. Alessandro Mendoza MD Status: REG CLI Study: Chest PA and Lateral Date of Exam: 02/13/24 Exam# [id number] Ordering Dr: Juancarlos Marquez MD [id number] INDICATION: Heart Cath EXAMINATION/TECHNIQUE: X-RAY - XR [...] Alessandro Mendoza MD; Dr. Juancarlos Marquez MD [place] Supervisor: Signed Normal [facility] Prothrombin Time w/INRon INR Coag (PPP) [Relative time] 0.9 {INR} Normal [facility] Comment on above: Performed By: #### L 100.0100, L500.2500, L300.3900 ####[facility] [address] [place], [address] PT Coag (PPP) [Time] 12.4 s Normal 11.7-14.9 [facility] Comment on above: Performed By: #### L 100.0100, L500.2500, L300.3900 ####[facility] [address] [place], [address] Encounters Encounter Date Encounter Type Care Provider Facility Start: 05-17-2024 End: 05-17-2024 ambulatory Alessandro Wrighthman Facility:[facility] Start: 03-05-2024 ambulatory Zheng Joineran Facility:[facility] Start: 03-05-2024 End: 03-06-2024 ambulatory Alessandro Reji Facility:[facility] Start: 02-29-2024 ambulatory Elginmessigeno Elgincristychaceandreas Orourke cility:[facility] Start: 02-29-2024 End: 02-29-2024 ambulatory Juancarlos Marquez Facility:[facility] Start: 02-13-2024 End: 02-13-2024 ambulatory Alessandro Reji Facility:[facility] Start: 02-13-2024 End: 02-13-2024 ambulatory [facility] Facility:[facility] Payers Date Payer Category Payer Self-pay 2024 Unknown [id number] Unknown [id number] 2.16.8 [id number] Unknown [id number] 2.16.8 [id number] Unknown [id number] 2.16.8 [id number] Unknown [id number] 2.16.8 [id number] Unknown [id number] 2.16.8 [id number] Unknown [id number] 2.16.8 [id number] Unknown [id number] 2.16.8 [id number] Unknown [id number] 2.16.8 [id number] Summary Purpose Family History No Family History Records Found Advance Directives No Advanced Directives Records Found Additional Source Comments (unrecognized sect ion and content) No Status Records Found INFORMATION SOURCE (unrecogn ized section and content) DATE CREATED AUTHOR 05/19/2024 [facility] FOR RECORDS PERTAINING TO PATIENTS WHO [...] BE BASED ON THE PRIMARY CLINICAL RECORDS. [employer] [facility]. provides no warranty or guarantee of the accuracy or completeness of information in this document.
== END | disposition home or self-care (01) ==
PROVIDERS: PCP Family Medicine; Referring Provider Nurse Practitioner Family; Visit Provider Nurse Practitioner Family
DX: G47.10 Hypersomnia, unspecified (principal)
CPT/HCPCS: 95811